=== PATIENT | female | born 1995 | race African-American/Black ===

== ENCOUNTER 2016-05-27 19:03 | Emergency (ER) | payer OTHER ==
[2016-05-27] MEDS ORDERED: metroNIDAZOLE (FLAGYL) 250 MG TAB As Ordered ONE (21:39)
--- NOTE | 2016-05-27 21:48 | EDDOCDS ---
Nurse's Notes [facility] Name: Thomas Ledbetter Age: 20 yrs Sex: Female : 1995 Arrival Date: 05/27/2016 Time: 19:03 Bed I4 / M4 [facility] Diagnosis: Vaginitis, vulvitis and vulvovaginitis in diseases classified elsewhere-bacterial vaginosis;Other ovarian cysts-right;Pseudofolliculitis barbae-mons pubis Presentation: 05/27 19:22 Presenting complaint: Patient states: Has had ongoing yeast infection for 2.5 months jo3 and developed a rash two days ago. Has had several treatments for yeast infection that have been unsuccessful. Adult Sepsis Screening: The patient does not have new or worsening altered mentation. Patient's respiratory rate is less than 22. Systolic blood pressure is less than or equal to 100 (1 point). Patient has a qSOFA score of 1- Negative Sepsis Screen. Suicide/Homicide risk assessment- the patient denies having any suicidal and/or homicidal ideations and does not present with any other emotional, behavioral or mental health complaints. 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 Transition of care: patient was not received from another setting of care. 19:22 Acuity: JOE Level 3 jo3 19:22 Method Of Arrival: Walkin/Carried/Asstd jo3 Triage Assessment: 19:24 General: Appears in no apparent distress, comfortable, Behavior is appropriate for age, jo3 cooperative, pleasant. HIV screening NA for this visit Offered previously. Neurological: Level of Consciousness is awake, alert, Oriented to person, place, time. Respiratory: Airway is patent Respiratory effort is even, unlabored. 21:47 Pain: Denies pain. 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 none - PMHx: none; - PSHx: none; - Social history: Smoking status: Patient states was never smoker of tobacco. No barriers to communication noted, The patient speaks fluent [place], Speaks appropriately for age. - Family history: Not pertinent. - : The pt / caregiver states he / she is not on anticoagulants. Home medication list is obtained from the patient. - Exposure Risk Screening:: None identified. Screenin:42 Screening information is obtained from the patient. Fall risk: No risks identified. js15 Assistance ADL's: requires no assistance with activities of daily living. Abuse/DV Screen: The patient / caregiver reports he/she is: not in a situation that causes fear, pain or injury. Nutritional screening: No deficits noted. Advance Directives: There is no active DNR order. home support is adequate. Assessment: 21:42 General: Appears in no apparent distress, Behavior is appropriate for age, cooperative. js15 Neurological: Level of Consciousness is awake, alert, obeys commands. Respiratory: Airway is patent Respiratory effort is even, unlabored, Respiratory pattern is regular, symmetrical. Derm: Skin is normal. Vital Signs: 19:04 BP 98 / 57; Pulse 75; Resp 18 S; Temp 97.4(O); Pulse Ox 100% on R/A; Weight 55.79 kg gr2 (R); Height 5 ft. 7 in. (170.18 cm) (R); Pain 4/10; 21:44 BP 98 / 52; Pulse 64; Resp 18; Temp 97.6; Pulse Ox 100% ; Pain 0/10; ajs 19:04 Body Mass Index 19.26 (55.79 kg, 170.18 cm) gr2 Vitals: 19:04 Log In Time: May 27, 2016 at 19:04. gr2 ED Course: 19:04 Patient visited by Paloma Clement. gr2 19:04 [facility] [place] is Private Physician. gr2 19:04 Patient moved to Waiting gr2 19:06 Patient visited by Paloma Clement. gr2 19:06 Patient moved to Pre RCE gr2 19:24 Triage Initiated jo3 19:26 Patient visited by Gunjan Quesada RN. jo3 19:49 Patient moved to Triage 3 jf3 19:52 [facility] ar2 19:52 Dima Ontiveros DO is Attending Physician. ar2 19:52 Patient visited by Sonny Donis PA-C. ar2 20:03 Patient moved to I4 / M4 ajs 20:23 Patient moved to Ultrasound en 20:49 Patient moved to I4 / M4 en 21:10 [facility] Payment Agreement was scanned into [employer] and attached to record. gjb 21:15 Patient name changed from Amonee\S\\S\Ledbetter\S\ to Amonee\S\ \S\Ledbetter. EDMS 21:35 Abby Gonzales MD is Referral Physician. ar2 21:35 [facility]. ar2 21:42 The patient / caregiver is instructed regarding the plan of care and ED course. js15 21:42 No IV's were initiated during this patient's visit. No procedures done that require js15 assistance. Administered Medications: 21:42 Drug: metroNIDAZOLE 500 mg [metronidazole 250 mg tablet (2 tabs)] Route: PO; js15 Order Results: Lab Order: Wet Prep; SPEC'M 05/27/16 20:17 Test: WET PREP; Value: WET PREP RESULT; Status: F Test: WET PREP; Value: FEW WBC; Status: F Test: WET PREP; Value: FEW CLUE CELLS PRESENT; Status: F Test: WET PREP; Value: MODERATE EPITHELIAL CELLS PRESENT; Status: F Test: WET PREP; Value: FEW SHORT RODS PRESENT; Status: F Test: WET PREP; Value: MANY LONG RODS PRESENT; Status: F Lab Order: UA; SPEC'M 05/27/16 20:54 Test: APPEARANCE, URINE; Value: CLEAR; Range: CLEAR; Status: F Test: COLOR, URINE; Value: STRAW; Range: YELLOW; Status: F Test: PH,URINE; Value: 7.0; Range: 5.0-9.0; Units: UNITS; Status: F Test: SPECIFIC GRAVITY URINE AUTO; Value: 1.015; Range: 1.002-1.035; Status: F Test: PROTEIN, URINE AUTO; Value: NEGATIVE; Range: NEGATIVE; Units: mg/dL; Status: F Test: GLUCOSE, URINE (UA) AUTO; Value: NEGATIVE; Range: NEGATIVE; Units: mg/dL; Status: F Test: KETONE, URINE AUTO; Value: NEGATIVE; Range: NEGATIVE; Units: mg/dL; Status: F Test: UROBILINOGEN, URINE AUTO; Value: 0.2; Range: 0.0-2.0; Units: mg/dL; Status: F Test: BILIRUBIN, URINE AUTO; Value: NEGATIVE; Range: NEGATIVE; Status: F Test: NITRITE, URINE AUTO; Value: NEGATIVE; Range: NEGATIVE; Status: F Test: LEUKOCYTE ESTERASE, URINE AUTO; Value: NEGATIVE; Range: NEGATIVE; Status: F Test: BLOOD, URINE BLOOD; Value: NEGATIVE; Range: NEGATIVE; Status: F Test: WBC, URINE AUTO; Value: 0; Range: 0-3; Units: /HPF; Status: F Test: RBC, URINE AUTO; Value: 2; Range: 0-3; Units: /HPF; Status: F Test: BACTERIA, URINE AUTO; Value: NEGATIVE; Range: NEGATIVE; Status: F Test: SQUAMOUS EPITHELIAL CELL UR AU; Value: 0; Range: 0-6; Units: /HPF; Status: F Test: MUCUS, URINE; Value: SMALL; Range: NEGATIVE; Status: F Test: HYALINE CAST, URINE AUTO; Value: 0; Range: 0-1; Units: /LPF; Status: F Outcome: 21:37 Discharge ordered by Provider. ar2 21:46 Discharge Assessment: Patient awake, alert and oriented x 3. No cognitive and/or js15 functional deficits noted. Patient verbalized understanding of disposition instructions. patient administered narcotics - no. The following High Risk Discharge criteria are identified: None. Discharged to home ambulatory. Condition: unchanged. Discharge instructions given to patient, Instructed on discharge instructions, follow up and referral plans. medication usage, Demonstrated understanding of instructions, medications, Pt was receptive of discharge instructions/ teaching. Prescriptions given X 2. Property sent home with patient. 21:47 Ultrasound Study completed. js15 21:47 Patient left the ED. js15 Signatures: Dispatcher [employer] EDNH Gunjan Quesada RN RN Sonny Corley, PA-C PA-C ar2 Sugey Lopez Gainslee gr2 Griselda Collado RN RN js15 Dolores Walker JustinRN RN ceasar3 Sharon Rodriguez MTDD
--- NOTE | 2016-05-27 21:48 | EDDOCDS ---
Physician Documentation [facility] Name: Thomas Ledbetter Age: 20 yrs Sex: Female : 1995 Arrival Date: 05/27/2016 Time: 19:03 Bed I4 / M4 Private MD: [facility] [place] Disposition: 05/27/16 21:37 Discharged to Home/Self Care. Impression: Vaginitis, vulvitis and vulvovaginitis in diseases classified elsewhere - bacterial vaginosis, Other ovarian cysts - right, Pseudofolliculitis barbae - mons pubis. - Condition is Stable. - Discharge Instructions: Folliculitis, Ovarian Cyst, Bacterial Vaginosis, [id number]. - Prescriptions for Flagyl 500 mg Oral Tablet - take 1 tablet by ORAL route every 12 hours for 7 days; 13 tablet. Ibuprofen 600 mg Oral Tablet - take 1 tablet by ORAL route every 6 hours As needed take with food; 30 tablet. - Medication Reconciliation, Local Pharmacy Hours form. - Follow up: Abby Gonzales MD; When: Call to arrange an appointment; Reason: Recheck today's complaints, Continuance of care. Follow up: [facility]; When: As needed; Reason: Continuance of care. - Problem is new. - Symptoms are unchanged. Historical: - Allergies: No known drug Allergies; - Home Meds: 1. none - PMHx: none; - PSHx: none; - Social history: Smoking status: Patient states was never smoker of tobacco. No barriers to communication noted, The patient speaks fluent Azeri, Speaks appropriately for age. - Family history: Not pertinent. - : The pt / caregiver states he / she is not on anticoagulants. Home medication list is obtained from the patient. - Exposure Risk Screening:: None identified. 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 7 in. (170.18 cm) (R); Pain 4/10; 21:44 BP 98 / 52; Pulse 64; Resp 18; Temp 97.6; Pulse Ox 100% ; Pain 0/10; ajs 19:04 Body Mass Index 19.26 (55.79 kg, 170.18 cm) gr2 MDM: 20:03 Undress patient appropriately for examination ordered. ar2 20:03 Set up pelvic ordered. ar2 20:04 GC & Chlamydia Amplification Ordered. EDMS 20:04 UA Ordered. EDMS 20:04 Wet Prep Ordered. EDMS 20:04 Urine Culture Ordered. EDMS 20:19 -US Pelvic Non-Ob Complete Ordered. EDMS 20:19 DUPLEX SCAN LIMITED (DOPPLER)+US Ordered. EDMS 20:45 Transvaginal NON- US Ordered. EDMS 21:00 Wet Prep Reviewed. ar2 21:09 Financial registration complete. gjb 21:10 [facility] Payment Agreement was scanned into [employer] and attached to record. gjb 21:34 UA Reviewed. ar2 21:34 metroNIDAZOLE 500 mg PO once ordered. ar2 Administered Medications: 21:42 Drug: metroNIDAZOLE 500 mg [metronidazole 250 mg tablet (2 tabs)] Route: PO; js15 Signatures: Dispatcher [employer] Gunjan Gomez,RN RN jo3 Sonny Donis, PADoron PADoron ar2 Griselda ColladoRN RN js15 Sharon Rodriguez The chart was reviewed and I authenticate all verbal orders and agree with the evaluation and treatment provided.Attachments: 21:10 [facility] Payment Agreement gjb MTDD
--- NOTE | 2016-05-27 22:00 | REPUSA ---
HISTORY: Adnexal pain with discharge COMPARISON : None FINDINGS: Ultrasound examination of the pelvis was performed, transabdominally and endovaginally. Ultrasound wa s performed using grayscale, color doppler flow and spectral waveform analysis. The anteverted uterus measures 7.4 x 3.8 x 4.9 cm without masses. The endometrial stripe measured 4 mm without mass or increased vascularity. The right ovary measured 4.2 x 2.4 x 3.7 cm The left ovary measured 4.1 x 1.8 x 3.6 cm. Both ovaries demonstrate with a 2.7 cm simple appearing right ovarian cyst which is probable dominant follicle. No free fluid. IMPRESSION: No evidence of ovarian torsion. Both ovaries demonstrate with a 2.7 cm simple appearing right ovarian cyst which is probable dominant follicle.
--- NOTE | 2016-05-29 22:48 | EDDOCDS ---
Physician Documentation [facility] Name: Thomas Ledbetter Age: 20 yrs Sex: Female : 1995 Arrival Date: 05/27/2016 Time: 19:03 Bed I4 / M4 Private MD: [facility] [place] Disposition: 05/27/16 21:37 Discharged to Home/Self Care. Impression: Vaginitis, vulvitis and vulvovaginitis in diseases classified elsewhere - bacterial vaginosis, Other ovarian cysts - right, Pseudofolliculitis barbae - mons pubis. - Condition is Stable. - Discharge Instructions: Folliculitis, Ovarian Cyst, Bacterial Vaginosis, [id number]. - Prescriptions for Flagyl 500 mg Oral Tablet - take 1 tablet by ORAL route every 12 hours for 7 days; 13 tablet. Ibuprofen 600 mg Oral Tablet - take 1 tablet by ORAL route every 6 hours As needed take with food; 30 tablet. - Medication Reconciliation, Local Pharmacy Hours form. - Follow up: Abby Gonzales MD; When: Call to arrange an appointment; Reason: Recheck today's complaints, Continuance of care. Follow up: [facility] [place]; When: As needed; Reason: Continuance of care. - Problem is new. - Symptoms are unchanged. Historical: - Allergies: No known drug Allergies; - Home Meds: 1. none - PMHx: none; - PSHx: none; - Social history: Smoking status: Patient states was never smoker of tobacco. No barriers to communication noted, The patient speaks fluent Swedish, Speaks appropriately for age. - Family history: Not pertinent. - : The pt / caregiver states he / she is not on anticoagulants. Home medication list is obtained from the patient. - Exposure Risk Screening:: None identified. 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 7 in. (170.18 cm) (R); Pain 4/10; 21:44 BP 98 / 52; Pulse 64; Resp 18; Temp 97.6; Pulse Ox 100% ; Pain 0/10; ajs 19:04 Body Mass Index 19.26 (55.79 kg, 170.18 cm) gr2 MDM: 20:03 Undress patient appropriately for examination ordered. ar2 20:03 Set up pelvic ordered. ar2 20:04 GC & Chlamydia Amplification Ordered. EDMS 20:04 UA Ordered. EDMS 20:04 Wet Prep Ordered. EDMS 20:04 Urine Culture Ordered. EDMS 20:19 -US Pelvic Non-Ob Complete Ordered. EDMS 20:19 DUPLEX SCAN LIMITED (DOPPLER)+US Ordered. EDMS 20:45 Transvaginal NON- US Ordered. EDMS 21:00 Wet Prep Reviewed. ar2 21:09 Financial registration complete. gjb 21: [facility] Payment Agreement was scanned into [employer] and attached to record. gjb 21:34 UA Reviewed. ar2 21:34 metroNIDAZOLE 500 mg PO once ordered. ar2 05/28 12:53 T-Sheet-- Draft Copy was scanned into [employer] and attached to record. gb Administered Medications: 05/27 21:42 Drug: metroNIDAZOLE 500 mg [metronidazole 250 mg tablet (2 tabs)] Route: PO; js15 Signatures: Dispatcher [employer] EDHI Sheryl Hurley, Reg Reg gb Gunjan Quesada,RN RN mario3 Sonny Donis PA-C PADoron ar2 Griselda ColladoRN RN js15 Sharon Rodriguez The chart was reviewed and I authenticate all verbal orders and agree with the evaluation and treatment provided.Attachments: :10 [facility] Payment Agreement [facility] 05/28 12:53 T-Sheet-- Draft Copy gb Chart Complete MTDD
--- NOTE | 2016-05-29 22:48 | EDDOCDS ---
Physician Documentation [facility] Name: Thomas Ledbetter Age: 20 yrs Sex: Female : 1995 Arrival Date: 05/27/2016 Time: 19:03 Bed I4 / M4 Private MD: [facility] [place] Disposition: 05/27/16 21:37 Discharged to Home/Self Care. Impression: Vaginitis, vulvitis and vulvovaginitis in diseases classified elsewhere - bacterial vaginosis, Other ovarian cysts - right, Pseudofolliculitis barbae - mons pubis. - Condition is Stable. - Discharge Instructions: Folliculitis, Ovarian Cyst, Bacterial Vaginosis, [id number]. - Prescriptions for Flagyl 500 mg Oral Tablet - take 1 tablet by ORAL route every 12 hours for 7 days; 13 tablet. Ibuprofen 600 mg Oral Tablet - take 1 tablet by ORAL route every 6 hours As needed take with food; 30 tablet. - Medication Reconciliation, Local Pharmacy Hours form. - Follow up: Abby Gonzales MD; When: Call to arrange an appointment; Reason: Recheck today's complaints, Continuance of care. Follow up: [facility] [place]; When: As needed; Reason: Continuance of care. - Problem is new. - Symptoms are unchanged. Historical: - Allergies: No known drug Allergies; - Home Meds: 1. none - PMHx: none; - PSHx: none; - Social history: Smoking status: Patient states was never smoker of tobacco. No barriers to communication noted, The patient speaks fluent Telugu, Speaks appropriately for age. - Family history: Not pertinent. - : The pt / caregiver states he / she is not on anticoagulants. Home medication list is obtained from the patient. - Exposure Risk Screening:: None identified. 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 7 in. (170.18 cm) (R); Pain 4/10; 21:44 BP 98 / 52; Pulse 64; Resp 18; Temp 97.6; Pulse Ox 100% ; Pain 0/10; ajs 19:04 Body Mass Index 19.26 (55.79 kg, 170.18 cm) gr2 MDM: 20:03 Undress patient appropriately for examination ordered. ar2 20:03 Set up pelvic ordered. ar2 20:04 GC & Chlamydia Amplification Ordered. EDMS 20:04 UA Ordered. EDMS 20:04 Wet Prep Ordered. EDMS 20:04 Urine Culture Ordered. EDMS 20:19 -US Pelvic Non-Ob Complete Ordered. EDMS 20:19 DUPLEX SCAN LIMITED (DOPPLER)+US Ordered. EDMS 20:45 Transvaginal NON- US Ordered. EDMS 21:00 Wet Prep Reviewed. ar2 21:09 Financial registration complete. gjb 21: [facility] Payment Agreement was scanned into [facility] and attached to record. gjb 21:34 UA Reviewed. ar2 21:34 metroNIDAZOLE 500 mg PO once ordered. ar2 05/28 12:53 T-Sheet-- Draft Copy was scanned into [facility] and attached to record. gb Administered Medications: 05/27 21:42 Drug: metroNIDAZOLE 500 mg [metronidazole 250 mg tablet (2 tabs)] Route: PO; js15 Signatures: Dispatcher [employer] EDPR Sheryl Hurley, Reg Reg gb Gunjan Quesada,RN RN mario3 Sonny Donis PA-C PADoron ar2 Griselda ColladoRN RN js15 Sharon Rodriguez The chart was reviewed and I authenticate all verbal orders and agree with the evaluation and treatment provided.Attachments: :10 [facility] Payment Agreement [facility] 05/28 12:53 T-Sheet-- Draft Copy gb Chart Complete MTDD
--- NOTE | 2016-05-29 22:48 | EDDOCDS ---
Nurse's Notes [facility] Name: Thomas Ledbetter Age: 20 yrs Sex: Female : 1995 Arrival Date: 05/27/2016 Time: 19:03 Bed I4 / M4 [facility] Diagnosis: Vaginitis, vulvitis and vulvovaginitis in diseases classified elsewhere-bacterial vaginosis;Other ovarian cysts-right;Pseudofolliculitis barbae-mons pubis Presentation: 05/27 19:22 Presenting complaint: Patient states: Has had ongoing yeast infection for 2.5 months jo3 and developed a rash two days ago. Has had several treatments for yeast infection that have been unsuccessful. Adult Sepsis Screening: The patient does not have new or worsening altered mentation. Patient's respiratory rate is less than 22. Systolic blood pressure is less than or equal to 100 (1 point). Patient has a qSOFA score of 1- Negative Sepsis Screen. Suicide/Homicide risk assessment- the patient denies having any suicidal and/or homicidal ideations and does not present with any other emotional, behavioral or mental health complaints. 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 Transition of care: patient was not received from another setting of care. 19:22 Acuity: JOE Level 3 jo3 19:22 Method Of Arrival: Walkin/Carried/Asstd jo3 Triage Assessment: 19:24 General: Appears in no apparent distress, comfortable, Behavior is appropriate for age, jo3 cooperative, pleasant. HIV screening NA for this visit Offered previously. Neurological: Level of Consciousness is awake, alert, Oriented to person, place, time. Respiratory: Airway is patent Respiratory effort is even, unlabored. 21:47 Pain: Denies pain. 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 none - PMHx: none; - PSHx: none; - Social history: Smoking status: Patient states was never smoker of tobacco. No barriers to communication noted, The patient speaks fluent [place], Speaks appropriately for age. - Family history: Not pertinent. - : The pt / caregiver states he / she is not on anticoagulants. Home medication list is obtained from the patient. - Exposure Risk Screening:: None identified. Screenin:42 Screening information is obtained from the patient. Fall risk: No risks identified. js15 Assistance ADL's: requires no assistance with activities of daily living. Abuse/DV Screen: The patient / caregiver reports he/she is: not in a situation that causes fear, pain or injury. Nutritional screening: No deficits noted. Advance Directives: There is no active DNR order. home support is adequate. Assessment: 21:42 General: Appears in no apparent distress, Behavior is appropriate for age, cooperative. js15 Neurological: Level of Consciousness is awake, alert, obeys commands. Respiratory: Airway is patent Respiratory effort is even, unlabored, Respiratory pattern is regular, symmetrical. Derm: Skin is normal. Vital Signs: 19:04 BP 98 / 57; Pulse 75; Resp 18 S; Temp 97.4(O); Pulse Ox 100% on R/A; Weight 55.79 kg gr2 (R); Height 5 ft. 7 in. (170.18 cm) (R); Pain 4/10; 21:44 BP 98 / 52; Pulse 64; Resp 18; Temp 97.6; Pulse Ox 100% ; Pain 0/10; ajs 19:04 Body Mass Index 19.26 (55.79 kg, 170.18 cm) gr2 Vitals: 19:04 Log In Time: May 27, 2016 at 19:04. gr2 ED Course: 19:04 Patient visited by Paloma Clement. gr2 19:04 [facility], [place] is Private Physician. gr2 19:04 Patient moved to Waiting gr2 19:06 Patient visited by Paloma Clement. gr2 19:06 Patient moved to Pre RCE gr2 19:24 Triage Initiated jo3 19:26 Patient visited by Gunjan Quesada RN. jo3 19:49 Patient moved to Triage 3 jf3 19:52 [facility] ar2 19:52 Dima Ontiveros DO is Attending Physician. ar2 19:52 Patient visited by Sonny Donis PA-C. ar2 20:03 Patient moved to I4 / M4 ajs 20:23 Patient moved to Ultrasound en 20:49 Patient moved to I4 / M4 en 21:10 [facility] Agreement was scanned into [employer] and attached to record. gjb 21:15 Patient name changed from Amonee\S\\S\Ledbetter\S\ to Amonee\S\ \S\Ledbetter. EDMS 21:35 Abby Gonzales MD is Referral Physician. ar2 21:35 [facility]. ar2 21:42 The patient / caregiver is instructed regarding the plan of care and ED course. js15 21:42 No IV's were initiated during this patient's visit. No procedures done that require js15 assistance. 22:38 -US Pelvic Non-Ob Complete Returned. EDMS 05/28 12:53 T-Sheet-- Draft Copy was scanned into [employer] and attached to record. gb Administered Medications: 05/27 21:42 Drug: metroNIDAZOLE 500 mg [metronidazole 250 mg tablet (2 tabs)] Route: PO; js15 Order Results: Lab Order: Wet Prep; SPEC'M 05/27/16 20:17 Test: WET PREP; Value: WET PREP RESULT; Status: F Test: WET PREP; Value: FEW WBC; Status: F Test: WET PREP; Value: FEW CLUE CELLS PRESENT; Status: F Test: WET PREP; Value: MODERATE EPITHELIAL CELLS PRESENT; Status: F Test: WET PREP; Value: FEW SHORT RODS PRESENT; Status: F Test: WET PREP; Value: MANY LONG RODS PRESENT; Status: F Lab Order: GC & Chlamydia Amplification; SPEC'M 05/27/16 20:17 Test: CHLAMYDIA DNA AMPLIFICATION; Value: NEGATIVE; Range: NEGATIVE; Status: F Test: GC DNA AMPLIFICATION; Value: NEGATIVE; Range: NEGATIVE; Status: F Lab Order: UA; SPEC'M 05/27/16 20:54 Test: APPEARANCE, URINE; Value: CLEAR; Range: CLEAR; Status: F Test: COLOR, URINE; Value: STRAW; Range: YELLOW; Status: F Test: PH,URINE; Value: 7.0; Range: 5.0-9.0; Units: UNITS; Status: F Test: SPECIFIC GRAVITY URINE AUTO; Value: 1.015; Range: 1.002-1.035; Status: F Test: PROTEIN, URINE AUTO; Value: NEGATIVE; Range: NEGATIVE; Units: mg/dL; Status: F Test: GLUCOSE, URINE (UA) AUTO; Value: NEGATIVE; Range: NEGATIVE; Units: mg/dL; Status: F Test: KETONE, URINE AUTO; Value: NEGATIVE; Range: NEGATIVE; Units: mg/dL; Status: F Test: UROBILINOGEN, URINE AUTO; Value: 0.2; Range: 0.0-2.0; Units: mg/dL; Status: F Test: BILIRUBIN, URINE AUTO; Value: NEGATIVE; Range: NEGATIVE; Status: F Test: NITRITE, URINE AUTO; Value: NEGATIVE; Range: NEGATIVE; Status: F Test: LEUKOCYTE ESTERASE, URINE AUTO; Value: NEGATIVE; Range: NEGATIVE; Status: F Test: BLOOD, URINE BLOOD; Value: NEGATIVE; Range: NEGATIVE; Status: F Test: WBC, URINE AUTO; Value: 0; Range: 0-3; Units: /HPF; Status: F Test: RBC, URINE AUTO; Value: 2; Range: 0-3; Units: /HPF; Status: F Test: BACTERIA, URINE AUTO; Value: NEGATIVE; Range: NEGATIVE; Status: F Test: SQUAMOUS EPITHELIAL CELL UR AU; Value: 0; Range: 0-6; Units: /HPF; Status: F Test: MUCUS, URINE; Value: SMALL; Range: NEGATIVE; Status: F Test: HYALINE CAST, URINE AUTO; Value: 0; Range: 0-1; Units: /LPF; Status: F Lab Order: Urine Culture; SPEC'M 05/27/16 20:54 Test: URINE CULTURE; Value: <EXTERNAL COMMENT eCWMed> FULL REPORT IN LAB NOTES (eCW and Medent).; Status: F Test: URINE CULTURE; Value: URINE CULTURE RESULT NO GROWTH; Status: F Radiology Order: -US Pelvic Non-Ob Complete Test: -US Pelvic Non-Ob Complete REASON FOR EXAMINATION: adenexal pain, discharge; ; HISTORY: Adnexal pain with discharge; COMPARISON : None; FINDINGS:; Ultrasound examination of the pelvis was performed, transabdominally and endovaginally. Ultrasound wa; s performed using grayscale, color doppler flow and spectral waveform analysis.; The anteverted uterus measures 7.4 x 3.8 x 4.9 cm without masses.; The endometrial stripe measured 4 mm without mass or increased vascularity.; The right ovary measured 4.2 x 2.4 x 3.7 cm; The left ovary measured 4.1 x 1.8 x 3.6 cm.; Both ovaries demonstrate with a 2.7 cm simple appearing right ovarian cyst which is probable dominant; follicle.; No free fluid.; IMPRESSION:; No evidence of ovarian torsion. Both ovaries demonstrate with a 2.7 cm simple appearing right ovarian; cyst which is probable dominant follicle.; ; Outcome: 21:37 Discharge ordered by Provider. ar2 21:46 Discharge Assessment: Patient awake, alert and oriented x 3. No cognitive and/or js15 functional deficits noted. Patient verbalized understanding of disposition instructions. patient administered narcotics - no. The following High Risk Discharge criteria are identified: None. Discharged to home ambulatory. Condition: unchanged. Discharge instructions given to patient, Instructed on discharge instructions, follow up and referral plans. medication usage, Demonstrated understanding of instructions, medications, Pt was receptive of discharge instructions/ teaching. Prescriptions given X 2. Property sent home with patient. 21:47 Ultrasound Study completed. js15 21:47 Patient left the ED. js15 Signatures: Dispatcher [employer] EDMS Sheryl Hurley, Reg Reg Gunjan Chaves,RN RN jo3 Sonny Donis, PA-Jerry PA-Jerry ar2 Sugey Lopez Gainslee gr2 Griselda ColladoRN RN js15 Dolores Walker Justin,RN RN jf3 Sharon Rodriguez Chart Complete MTDD
== END 2016-05-27 21:47 | disposition home or self-care (01) ==
LOC: M ED 19:03
DX: N83.209 Unspecified ovarian cyst, unspecified side (principal); N76.0 Acute vaginitis; L73.1 Pseudofolliculitis barbae

== ENCOUNTER 2016-06-22 22:23 | Emergency (ER) | payer OTHER ==
[2016-06-22 23:23] LABS: BASO % 0.5 % (0.0-1.0); EOS # 0.1 K/mm3 (0.0-0.50); LARGE UNSTAINED CELL # 0.2 K/mm3 (0.0-0.4); LARGE UNSTAINED CELL % 2.3 % (0.0-4.0); LYMPH # 1.9 K/mm3 (1.5-6.5); LYMPH % 28.3 % (24.0-44.0); MEAN CORPUSCULAR HEMOGLOBIN 30.2 pg (27.0-33.0); MEAN CORPUSCULAR HGB CONC 33.5 g/dl (32.0-36.5); MEAN CORPUSCULAR VOLUME 90.4 fl (80.0-96.0); MONO # 0.3 K/mm3 (0.0-0.8); MONO % 4.2 % (0.0-5.0); NEUTROPHILS % 62.7 % (36.0-66.0); PLATELET COUNT, AUTOMATED 181 k/mm3 (150-450); RED CELL DISTRIBUTION WIDTH 12.9 % (11.5-14.5); WHITE BLOOD COUNT 6.3 K/mm3 (4.0-10.0)
[2016-06-22] MEDS ORDERED: KETOROLAC 30 MG/ML VIAL (J1885) As Ordered ONE (23:30)
[2016-06-22 23:49] LABS: ALBUMIN 3.8 GM/DL (3.2-5.2); ALBUMIN/GLOBULIN RATIO 1.03 (1.00-1.93); ALKALINE PHOSPHATASE 81 U/L (45-117); ALT/SGPT 27 U/L (12-78); ANION GAP 9 MEQ/L (8-16); AST/SGOT 24 U/L (15-37); BILIRUBIN,DIRECT 0.1 MG/DL (0.0-0.2); BILIRUBIN,TOTAL 0.4 MG/DL (0.2-1.0); BLOOD UREA NITROGEN 10 MG/DL (7-18); CALCIUM LEVEL 9.1 MG/DL (8.5-10.1); CARBON DIOXIDE LEVEL 26 MEQ/L (21-32); CHLORIDE LEVEL 107 MEQ/L (98-107); CREATININE FOR GFR 0.84 MG/DL (0.55-1.02); GLUCOSE, FASTING 108 MG/DL (70-105); SODIUM LEVEL 142 MEQ/L (136-145); TOTAL PROTEIN 7.5 GM/DL (6.4-8.2)
--- NOTE | 2016-06-23 00:20 | REPUSA ---
Clinical history: suprapubic pain. Findings: The urinary bladder appears unremarkable, measuring 4.5 x 3.2 x 2.0 cm. No urinary bladder masses are seen. The right kidney measures 10.0 x 4.6 x 4.1 cm. The left kidney measures 10.3 x 4.7 x 6.1 cm. The kidneys demonstrate normal echotexture and echogenicity. There is no evidence of hydrone phrosis or nephrolithiasis. No renal masses are seen. No free fluid is appreciated. Impression: Unremarkable ultrasound examination of the kidneys.
[2016-06-23 00:54] LABS: CONTROL LINE UCG INT CTR LINE PRESENT
[2016-06-23] MEDS ORDERED: CIPROFLOXACIN 500 MG TAB As Ordered ONE (00:54)
[2016-06-23] MEDS ORDERED: cefTRIAXone SOD 1 GM VIAL (J0696) As Ordered ONE (00:54)
--- NOTE | 2016-06-23 01:40 | EDDOCDS ---
Physician Documentation [facility] Name: Thomas Ledbetter Age: 20 yrs Sex: Female : 1995 Arrival Date: 06/22/2016 Time: 22:23 Bed I7 / 29 Private MD: LORETO Boyd Disposition: 06/23/16 00:59 Discharged to Home/Self Care. Impression: Urinary tract infection, site not specified. - Condition is Stable. - Discharge Instructions: Abdominal Pain, Adult, Urinary Tract Infection. - Prescriptions for Cipro 500 mg Oral Tablet - take 1 tablet by ORAL route every 12 hours; 14 tablet. Pyridium 200 mg Oral Tablet - take 1 tablet by ORAL route every 8 hours for 3 days; 9 tablet. - Work Release Form - 2 day, Medication Reconciliation, Local Pharmacy Hours form. - Follow up: LORETO Boyd; When: Call to arrange an appointment; Reason: Recheck today's complaints, Continuance of care. - Problem is new. - Symptoms are unchanged. Historical: - Allergies: No known drug Allergies; - Home Meds: 1. none - PMHx: none; - PSHx: none; - Social history: Smoking status: Patient states was never smoker of tobacco. No barriers to communication noted, The patient speaks fluent Citizen [place], Speaks appropriately for age, Preferred Language: Citizen [place]. - Family history: Not pertinent. - : The pt / caregiver states he / she is not on anticoagulants. Home medication list is obtained from the patient. - Exposure Risk Screening:: None identified. 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 7 in. (170.18 cm) (R); Pain 8/10; 06/23 01:12 BP 102 / 51; Pulse 73; Resp 18; Temp 97.4(O); Pulse Ox 99% on R/A; Pain 0/10; kb5 06/22 22:24 Body Mass Index 19.58 (56.70 kg, 170.18 cm) lr2 MDM: 06/22 22:32 Bladder Scan please ordered. lf1 23:03 IV Saline Lock ordered. mo1 23:03 Undress patient appropriately for examination ordered. mo1 23:03 ketorolac 30 mg IVP once ordered. mo1 23:04 NOTHING BY MOUTH+DIET ordered. EDMS 23:04 CBC with Diff Ordered. EDMS 23:04 BMP Ordered. EDMS 23:04 Liver Profile Ordered. EDMS 23:04 Urinalysis Ordered. EDMS 23:05 Urine Culture Ordered. EDMS 23:05 US Renal Ordered. EDMS 23:45 Financial registration complete. zo 23:46 [facility] [place] Payment Agreement was scanned into [employer] and attached to record. zo 23:52 Urinalysis Reviewed. mo1 23:53 BMP Reviewed. mo1 23:57 CBC with Diff Reviewed. mo1 23:57 Liver Profile Reviewed. mo1 06/23 00:38 cefTRIAXone 1 grams IVPB once over 30 mins; dilute in 50mL of NS or D5W ordered. mo1 00:38 Ciprofloxacin 500 mg PO once ordered. mo1 00:39 GC & Chlamydia Amplification Ordered. EDMS 00:39 Wet Prep Ordered. EDMS 00:41 US Renal Reviewed. mo1 00:44 Urine Test-In Lab Ordered. EDMS 00:56 Urine Test-In Lab Reviewed. mo1 00:57 Wet Prep Reviewed. mo1 Administered Medications: 06/22 23:35 Drug: ketorolac 30 mg [ketorolac 30 mg/mL (1 mL) injection solution (1 mL)] Route: IVP; ld5 Site: right antecubital; 06/23 00:05 Follow up: Response: Pain is resolved js15 01:07 Drug: cefTRIAXone 1 grams [ceftriaxone 1 gram solution for injection] Route: IVPB; js15 Infused Over: 30 mins; Site: right antecubital; 01:39 Follow up: IV Status: Completed infusion js15 01:07 Drug: Ciprofloxacin 500 mg [ciprofloxacin 500 mg tablet (1 tabs)] Route: PO; js15 Signatures: Dispatcher [employer] EDMS Carlos Royal Lisa,RN RN lf1 Ivan Mercado PA PA mo1 Griselda Collado RN RN js15 Patsy Finnegan RN ld5 The chart was reviewed and I authenticate all verbal orders and agree with the evaluation and treatment provided.Corrections: (The following items were deleted from the chart) 06/22 23:22 23:03 Lucy lazo mo1 js15 Attachments: 23:46 [facility] [place] Payment Agreement zo MTDD
--- NOTE | 2016-06-23 01:40 | EDDOCDS ---
Nurse's Notes [facility] Name: Thomas Ledbetter Age: 20 yrs Sex: Female : 1995 Arrival Date: 06/22/2016 Time: 22:23 Bed I7 29 Private MD: LORETO Boyd Diagnosis: Urinary tract infection, site not specified Presentation: 06/22 22:27 Presenting complaint: Patient states: Pt states she has been unable to urinate since lf1 3am this morning. Currently having 8/10 suprapubic pain. Pt. states prior to onset of symptoms she was not having any other symptoms. Denies nausea and vomiting. Presents to triage area rocking back and forth, in obvious discomfort. Adult Sepsis Screening: The patient does not have new or worsening altered mentation. Patient's respiratory rate is less than 22. Systolic blood pressure is greater than 100. Patient has a qSOFA score of 0- Negative Sepsis Screen. Suicide/Homicide risk assessment- the patient denies having any suicidal and/or homicidal ideations and does not present with any other emotional, behavioral or mental health complaints. Status: Patient is not a building services supervisor or dependent. Transition of care: patient was not received from another setting of care. 22:27 Acuity: JOE Level 3 lf1 22:27 Method Of Arrival: Walkin/Carried/Asstd lf1 Triage Assessment: 22:29 General: Appears slender, uncomfortable, Behavior is cooperative. Pain: Location: lf1 pelvis Pain currently is 8 out of 10 on a pain scale. Neurological: Level of Consciousness is awake, alert. Respiratory: Respiratory effort is even, unlabored. : Reports inability to void since 0300. 06/23 00:10 HIV screening NA for this visit Offered previously. 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 none - PMHx: none; - PSHx: none; - Social history: Smoking status: Patient states was never smoker of tobacco. No barriers to communication noted, The patient speaks fluent Cymraes, Speaks appropriately for age, Preferred Language: Cymraes. - Family history: Not pertinent. - : The pt / caregiver states he / she is not on anticoagulants. Home medication list is obtained from the patient. - Exposure Risk Screening:: None identified. Screenin/28 00:09 Screening information is obtained from the patient. Fall risk: No risks identified. js15 Assistance ADL's: requires no assistance with activities of daily living. Abuse/DV Screen: The patient / caregiver reports he/she is: not in a situation that causes fear, pain or injury. Nutritional screening: No deficits noted. Advance Directives: There is no active DNR order. home support is adequate. Assessment: 06/22 22:30 Reassessment: bladder scan performed to find <25 ml urine; however, pt is tender to js15 palpation in suprapubic area and bladder is distended; findings reported to Karen SHI and orders given. General: Appears uncomfortable, Behavior is appropriate for age, cooperative. Pain: Location: suprapubic area. Neurological: Level of Consciousness is awake, alert, obeys commands, Oriented to person, place, time. Respiratory: Airway is patent Respiratory effort is even, unlabored, Respiratory pattern is regular, symmetrical. GI: Abdomen is distended, in suprapubic region. : Last void was June 22, 2016. at 03:00. Derm: Skin is pink, warm & dry. 23:30 GI:. js15 23:45 Reassessment: Pt in US for imaging study. 15 06/23 00:30 Reassessment: Patient appears in no apparent distress at this time. Pt sleeping upon js15 entry to room with family at bedside; respirations even and unlabored; arouses easily and denies pain; skin normal, warm, dry. 01:30 General: Appears in no apparent distress, comfortable, to be sleeping. Respiratory: js15 Airway is patent Respiratory effort is even, unlabored, Respiratory pattern is regular, symmetrical. Derm: Skin is normal. Vital Signs: 06/22 22:24 BP 109 / 57; Pulse 79; Resp 16; Temp 97.2(O); Pulse Ox 100% on R/A; Weight 56.7 kg (R); lr2 Height 5 ft. 7 in. (170.18 cm) (R); Pain 8/10; 06/23 01:12 BP 102 / 51; Pulse 73; Resp 18; Temp 97.4(O); Pulse Ox 99% on R/A; Pain 0/10; kb5 06/22 22:24 Body Mass Index 19.58 (56.70 kg, 170.18 cm) lr2 Vitals: 06/22 22:24 Log In Time: June 22, 2016 at 22:23. lr2 ED Course: 22:24 Patient visited by Patsy Brown. lr2 22:24 Patient moved to Waiting lr2 22:26 Other - Complete Info On Cds is Private Physician. lr2 22:26 Oliver [facility] [place] is Private Physician. lr2 22:26 Patient moved to Pre RCE lr2 22:29 Triage Initiated lf1 22:31 Patient moved to I7 lf1 22:35 attempted to insert 16 fr min catheter; able to insert approx. 1/3 of catheter tubing js15 and returned cloudy yellow urine, however pt began having extreme pain, crying out and tensing, and was unable to tolerate complete catheter insertion. Karen SHI was called to bedside to report findings and instructed this junior technical writer to draw urine from catheter tubing for sample and to remove catheter; catheter tip removed with small amount of blood at tip of tube. will continue to monitor. 22:43 Ivan Mercado PA is PHCP. mo1 22:43 Harry Negron DO is Attending Physician. mo1 22:55 Patient visited by Ivan Mercado PA. mo1 23:10 Inserted saline lock: 20 gauge in right antecubital area The patient tolerated the js15 procedure well. 23:41 Patient name changed from Amonee\S\\S\Ledbetter\S\ to Amonee\S\ \S\Ledbetter. EDMS 23:45 Patient moved to Ultrasound dmg 23:46 [facility] Payment Agreement was scanned into [employer] and attached to record. zo 06/23 00:01 Patient moved to I dmg 00:09 The patient / caregiver is instructed regarding the plan of care and ED course. js15 00:10 Patient visited by Griselda Collado RN. js15 00:39 US Renal Returned. EDMS 00:40 Assist provider with pelvic exam: Set up pelvic tray. Specimens sent to lab. Performed js15 by Ivan SHI Patient tolerated well. 00:43 Wet Prep Sent. js15 00:44 GC & Chlamydia Amplification Sent. js15 00:44 Urine Test-In Lab Sent. js15 00:59 Oliver [facility] [place] is Referral Physician. mo1 01:12 Patient visited by Robert Sweet PCA. kb5 01:38 Discontinued IV lock intact, bleeding controlled, pressure dressing applied, No js15 redness/swelling at site. Administered Medications: 06/22 23:35 Drug: ketorolac 30 mg [ketorolac 30 mg/mL (1 mL) injection solution (1 mL)] Route: IVP; ld5 Site: right antecubital; 06/23 00:05 Follow up: Response: Pain is resolved 01:07 Drug: cefTRIAXone 1 grams [ceftriaxone 1 gram solution for injection] Route: IVPB; js15 Infused Over: 30 mins; Site: right antecubital; 01:39 Follow up: IV Status: Completed infusion 01:07 Drug: Ciprofloxacin 500 mg [ciprofloxacin 500 mg tablet (1 tabs)] Route: PO; js15 Order Results: Lab Order: CBC with Diff; SPEC'M 06/22/16 23:11 Test: WHITE BLOOD COUNT; Value: 6.3; Range: 4.0-10.0; Units: K/mm3; Status: F Test: RED BLOOD COUNT; Value: 4.21; Range: 4.00-5.40; Units: M/mm3; Status: F Test: HEMOGLOBIN; Value: 12.7; Range: 12.0-16.0; Units: g/dl; Status: F Test: HEMATOCRIT; Value: 38.1; Range: 36.0-47.0; Units: %; Status: F Test: MEAN CORPUSCULAR VOLUME; Value: 90.4; Range: 80.0-96.0; Units: fl; Status: F Test: MEAN CORPUSCULAR HEMOGLOBIN; Value: 30.2; Range: 27.0-33.0; Units: pg; Status: F Test: MEAN CORPUSCULAR HGB CONC; Value: 33.5; Range: 32.0-36.5; Units: g/dl; Status: F Test: RED CELL DISTRIBUTION WIDTH; Value: 12.9; Range: 11.5-14.5; Units: %; Status: F Test: PLATELET COUNT, AUTOMATED; Value: 181; Range: 150-450; Units: k/mm3; Status: F Test: NEUTROPHILS %; Value: 62.7; Range: 36.0-66.0; Units: %; Status: F Test: LYMPH %; Value: 28.3; Range: 24.0-44.0; Units: %; Status: F Test: MONO %; Value: 4.2; Range: 0.0-5.0; Units: %; Status: F Test: EOS %; Value: 2.0; Range: 0.0-3.0; Units: %; Status: F Test: BASO %; Value: 0.5; Range: 0.0-1.0; Units: %; Status: F Test: LARGE UNSTAINED CELL %; Value: 2.3; Range: 0.0-4.0; Units: %; Status: F Test: NEUTROPHILS #; Value: 4.0; Range: 1.8-7.7; Units: K/mm3; Status: F Test: LYMPH #; Value: 1.9; Range: 1.5-6.5; Units: K/mm3; Status: F Test: MONO #; Value: 0.3; Range: 0.0-0.8; Units: K/mm3; Status: F Test: EOS #; Value: 0.1; Range: 0.0-0.50; Units: K/mm3; Status: F Test: BASO #; Value: 0.0; Range: 0.0-0.2; Units: K/mm3; Status: F Test: LARGE UNSTAINED CELL #; Value: 0.2; Range: 0.0-0.4; Units: K/mm3; Status: F Lab Order: [facility]; SPEC'M 06/22/16 23:11 Test: GLUCOSE, FASTING; Value: 108; Range: 70-105; Abnormal: Above high normal; Units: MG/DL; Status: F Test: BLOOD UREA NITROGEN; Value: 10; Range: 7-18; Units: MG/DL; Status: F Test: CREATININE FOR GFR; Value: 0.84; Range: 0.55-1.02; Units: MG/DL; Status: F Test: SODIUM LEVEL; Value: 142; Range: 136-145; Units: MEQ/L; Status: F Test: POTASSIUM SERUM; Value: 4.0; Range: 3.5-5.1; Units: MEQ/L; Status: F Test: CHLORIDE LEVEL; Value: 107; Range: 98-107; Units: MEQ/L; Status: F Test: CARBON DIOXIDE LEVEL; Value: 26; Range: 21-32; Units: MEQ/L; Status: F Test: ANION GAP; Value: 9; Range: 8-16; Units: MEQ/L; Status: F Test: CALCIUM LEVEL; Value: 9.1; Range: 8.5-10.1; Units: MG/DL; Status: F Lab Order: Liver Profile; SPEC'M 06/22/16 23:11 Test: AST/SGOT; Value: 24; Range: 15-37; Units: U/L; Status: F Test: ALT/SGPT; Value: 27; Range: 12-78; Units: U/L; Status: F Test: ALKALINE PHOSPHATASE; Value: 81; Range: 45-117; Units: U/L; Status: F Test: BILIRUBIN,TOTAL; Value: 0.4; Range: 0.2-1.0; Units: MG/DL; Status: F Test: BILIRUBIN,DIRECT; Value: 0.1; Range: 0.0-0.2; Units: MG/DL; Status: F Test: TOTAL PROTEIN; Value: 7.5; Range: 6.4-8.2; Units: GM/DL; Status: F Test: ALBUMIN; Value: 3.8; Range: 3.2-5.2; Units: GM/DL; Status: F Test: ALBUMIN/GLOBULIN RATIO; Value: 1.03; Range: 1.00-1.93; Status: F Lab Order: Urinalysis; SPEC'M 06/22/16 23:11 Test: APPEARANCE, URINE; Value: CLOUDY; Range: CLEAR; Abnormal: Above high normal; Status: F Test: COLOR, URINE; Value: YELLOW; Range: YELLOW; Status: F Test: PH,URINE; Value: 5.0; Range: 5.0-9.0; Units: UNITS; Status: F Test: SPECIFIC GRAVITY URINE AUTO; Value: 1.034; Range: 1.002-1.035; Status: F Test: PROTEIN, URINE AUTO; Value: 2+; Range: NEGATIVE; Abnormal: Above high normal; Units: mg/dL; Status: F Test: GLUCOSE, URINE (UA) AUTO; Value: NEGATIVE; Range: NEGATIVE; Units: mg/dL; Status: F Test: KETONE, URINE AUTO; Value: TRACE; Range: NEGATIVE; Abnormal: Above high normal; Units: mg/dL; Status: F Test: UROBILINOGEN, URINE AUTO; Value: 0.2; Range: 0.0-2.0; Units: mg/dL; Status: F Test: BILIRUBIN, URINE AUTO; Value: NEGATIVE; Range: NEGATIVE; Status: F Test: NITRITE, URINE AUTO; Value: NEGATIVE; Range: NEGATIVE; Status: F Test: LEUKOCYTE ESTERASE, URINE AUTO; Value: 2+; Range: NEGATIVE; Abnormal: Above high normal; Status: F Test: BLOOD, URINE BLOOD; Value: 3+; Range: NEGATIVE; Abnormal: Above high normal; Status: F Test: WBC, URINE AUTO; Value: TNTC; Range: 0-3; Abnormal: Above high normal; Units: /HPF; Status: F Test: RBC, URINE AUTO; Value: TNTC; Range: 0-3; Abnormal: Above high normal; Units: /HPF; Status: F Test: BACTERIA, URINE AUTO; Value: 1+; Range: NEGATIVE; Abnormal: Above high normal; Status: F Test: SQUAMOUS EPITHELIAL CELL UR AU; Value: 3; Range: 0-6; Units: /HPF; Status: F Test: MUCUS, URINE; Value: LARGE; Range: NEGATIVE; Status: F Test: HYALINE CAST, URINE AUTO; Value: 0; Range: 0-1; Units: /LPF; Status: F Test: AMORPHOUS SEDIMENT; Value: SMALL; Range: NEGATIVE; Abnormal: Above high normal; Status: F Lab Order: Wet Prep; SPEC'M 06/23/16 00:42 Test: WET PREP; Value: WET PREP RESULT; Status: F Test: WET PREP; Value: MANY RBC; Status: F Test: WET PREP; Value: MODERATE WBC; Status: F Test: WET PREP; Value: MODERATE EPITHELIAL CELLS PRESENT; Status: F Test: WET PREP; Value: MODERATE SHORT RODS PRESENT; Status: F Lab Order: Urine Test-In Lab; SPEC'M 06/22/16 23:11 Test: URINE PREG TEST; Value: NEGATIVE; Range: NEGATIVE; Status: F Radiology Order: US Renal Test: US Renal REASON FOR EXAMINATION: suprapubic pain; ; Clinical history: suprapubic pain.; Findings: The urinary bladder appears unremarkable, measuring 4.5 x 3.2 x 2.0 cm. No urinary bladder; masses are seen. The right kidney measures 10.0 x 4.6 x 4.1 cm. The left kidney measures 10.3 x 4.7 x; 6.1 cm. The kidneys demonstrate normal echotexture and echogenicity. There is no evidence of hydrone; phrosis or nephrolithiasis. No renal masses are seen. No free fluid is appreciated.; Impression: Unremarkable ultrasound examination of the kidneys.; ; Outcome: 00:09 Ultrasound Study completed. js15 00:59 Discharge ordered by Provider. mo1 01:38 Discharge Assessment: Patient awake, alert and oriented x 3. No cognitive and/or js15 functional deficits noted. Patient verbalized understanding of disposition instructions. patient administered narcotics - no. The following High Risk Discharge criteria are identified: None. Discharged to home ambulatory, with significant other. Condition: stable Condition: improved. Discharge instructions given to patient, Instructed on discharge instructions, follow up and referral plans. medication usage, Demonstrated understanding of instructions, medications, Pt was receptive of discharge instructions/ teaching. Prescriptions given X 2. Property sent home with patient. 01:40 Patient left the ED. js15 Signatures: Dispatcher [employer] EDMS Lydia Gatica dmCarlos Bazzi Kristopher, LEAN LEADER LEAN LEADER kb5 Carina AriasRN RN lf1 Patsy Finnegan,RN RN ld5 Ivan Mercado PA PA mo1 Griselda Collado,CHAITANYA RN js15 Patsy Brown lr2 Corrections: (The following items were deleted from the chart) 00:07 06/22 23:35 attempted to insert 16 fr min catheter; able to insert approx. 1/3 of js15 catheter tubing and returned cloudy yellow urine, however pt began having extreme pain, crying out and tensing, and was unable to tolerate complete catheter insertion. Karen SHI was called to bedside to report findings and instructed this junior technical writer to draw urine from catheter tubing for sample and to remove catheter; catheter tip removed with small amount of blood at tip of tube. will continue to monitor 15 06/23 00:06/22 23:30 General: Appears uncomfortable, Behavior is appropriate for age, js15 cooperative, [facility] 06/23 00:06/22 23:30 Pain: Location: suprapubic area 15 [facility] 06/23 00:06/22 23:30 Neurological: Level of Consciousness is awake, alert, obeys commands, js15 Oriented to person, place, time, [facility] 06/23 00:06/22 23:30 Respiratory: Airway is patent Respiratory effort is even, unlabored, js15 Respiratory pattern is regular, symmetrical, [facility] 06/23 00:06/22 23:30 : Last void was June 22, 2016. at 03:00. [place] [id number] 06/23 00:06/22 23:30 GI: Abdomen is distended, in suprapubic region [place] [id number] 06/23 00:06/22 23:30 Derm: Skin is pink, warm & dry. [place] [id number] 06/23 00:06/22 23:30 Reassessment: bladder scan performed to find <25 ml urine; however, pt is js15 tender to palpation in suprapubic area and bladder is distended; findings reported to Karen SHI and orders given. [facility] MTDD
--- NOTE | 2016-06-25 02:41 | EDDOCDS ---
Physician Documentation [facility] Name: Thomas Ledbetter Age: 20 yrs Sex: Female : 1995 Arrival Date: 06/22/2016 Time: 22:23 Bed I7 / 29 Private MD: LORETO Boyd Disposition: 06/23/16 00:59 Discharged to Home/Self Care. Impression: Urinary tract infection, site not specified. - Condition is Stable. - Discharge Instructions: Abdominal Pain, Adult, Urinary Tract Infection. - Prescriptions for Cipro 500 mg Oral Tablet - take 1 tablet by ORAL route every 12 hours; 14 tablet. Pyridium 200 mg Oral Tablet - take 1 tablet by ORAL route every 8 hours for 3 days; 9 tablet. - Work Release Form - 2 day, Medication Reconciliation, Local Pharmacy Hours form. - Follow up: LORETO Boyd; When: Call to arrange an appointment; Reason: Recheck today's complaints, Continuance of care. - Problem is new. - Symptoms are unchanged. Historical: - Allergies: No known drug Allergies; - Home Meds: 1. none - PMHx: none; - PSHx: none; - Social history: Smoking status: Patient states was never smoker of tobacco. No barriers to communication noted, The patient speaks fluent Fijian, Speaks appropriately for age, Preferred Language: Fijian. - Family history: Not pertinent. - : The pt / caregiver states he / she is not on anticoagulants. Home medication list is obtained from the patient. - Exposure Risk Screening:: None identified. 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 7 in. (170.18 cm) (R); Pain 8/10; 06/23 01:12 BP 102 / 51; Pulse 73; Resp 18; Temp 97.4(O); Pulse Ox 99% on R/A; Pain 0/10; kb5 06/22 22:24 Body Mass Index 19.58 (56.70 kg, 170.18 cm) lr2 MDM: 06/22 22:32 Bladder Scan please ordered. lf1 23:03 IV Saline Lock ordered. mo1 23:03 Undress patient appropriately for examination ordered. mo1 23:03 ketorolac 30 mg IVP once ordered. mo1 23:04 NOTHING BY MOUTH+DIET ordered. EDMS 23:04 CBC with Diff Ordered. EDMS 23:04 BMP Ordered. EDMS 23:04 Liver Profile Ordered. EDMS 23:04 Urinalysis Ordered. EDMS 23:05 Urine Culture Ordered. EDMS 23:05 US Renal Ordered. EDMS 23:45 Financial registration complete. zo 23:46 [facility] Payment Agreement was scanned into [employer] and attached to record. zo 23:52 Urinalysis Reviewed. mo1 23:53 BMP Reviewed. mo1 23:57 CBC with Diff Reviewed. mo1 23:57 Liver Profile Reviewed. mo1 06/23 00:38 cefTRIAXone 1 grams IVPB once over 30 mins; dilute in 50mL of NS or D5W ordered. mo1 00:38 Ciprofloxacin 500 mg PO once ordered. mo1 00:39 GC & Chlamydia Amplification Ordered. EDMS 00:39 Wet Prep Ordered. EDMS 00:41 US Renal Reviewed. mo1 00:44 Urine Test-In Lab Ordered. EDMS 00:56 Urine Test-In Lab Reviewed. mo1 00:57 Wet Prep Reviewed. mo1 Administered Medications: 06/22 23:35 Drug: ketorolac 30 mg [ketorolac 30 mg/mL (1 mL) injection solution (1 mL)] Route: IVP; ld5 Site: right antecubital; 06/23 00:05 Follow up: Response: Pain is resolved js15 01:07 Drug: cefTRIAXone 1 grams [ceftriaxone 1 gram solution for injection] Route: IVPB; js15 Infused Over: 30 mins; Site: right antecubital; 01:39 Follow up: IV Status: Completed infusion js15 01:07 Drug: Ciprofloxacin 500 mg [ciprofloxacin 500 mg tablet (1 tabs)] Route: PO; js15 Signatures: Dispatcher [employer] EDMS Carlos Royal Lisa,RN RN lf1 Ivan Mercado PA PA mo1 Griselda Collado RN RN js15 Patsy Finnegan RN ld5 The chart was reviewed and I authenticate all verbal orders and agree with the evaluation and treatment provided.Corrections: (The following items were deleted from the chart) 06/22 23:22 23:03 Lucy lazo mo1 js15 Attachments: 23:46 [facility] Payment Agreement zo Chart Complete MTDD
--- NOTE | 2016-06-25 02:41 | EDDOCDS ---
Physician Documentation [facility] Name: Thomas Ledbetter Age: 20 yrs Sex: Female : 1995 Arrival Date: 06/22/2016 Time: 22:23 Bed I7 / 29 Private MD: LORETO Boyd Disposition: 06/23/16 00:59 Discharged to Home/Self Care. Impression: Urinary tract infection, site not specified. - Condition is Stable. - Discharge Instructions: Abdominal Pain, Adult, Urinary Tract Infection. - Prescriptions for Cipro 500 mg Oral Tablet - take 1 tablet by ORAL route every 12 hours; 14 tablet. Pyridium 200 mg Oral Tablet - take 1 tablet by ORAL route every 8 hours for 3 days; 9 tablet. - Work Release Form - 2 day, Medication Reconciliation, Local Pharmacy Hours form. - Follow up: LORETO Boyd; When: Call to arrange an appointment; Reason: Recheck today's complaints, Continuance of care. - Problem is new. - Symptoms are unchanged. Historical: - Allergies: No known drug Allergies; - Home Meds: 1. none - PMHx: none; - PSHx: none; - Social history: Smoking status: Patient states was never smoker of tobacco. No barriers to communication noted, The patient speaks fluent [place] Islander, Speaks appropriately for age, Preferred Language: [place] Islander. - Family history: Not pertinent. - : The pt / caregiver states he / she is not on anticoagulants. Home medication list is obtained from the patient. - Exposure Risk Screening:: None identified. 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 7 in. (170.18 cm) (R); Pain 8/10; 06/23 01:12 BP 102 / 51; Pulse 73; Resp 18; Temp 97.4(O); Pulse Ox 99% on R/A; Pain 0/10; kb5 06/22 22:24 Body Mass Index 19.58 (56.70 kg, 170.18 cm) lr2 MDM: 06/22 22:32 Bladder Scan please ordered. lf1 23:03 IV Saline Lock ordered. mo1 23:03 Undress patient appropriately for examination ordered. mo1 23:03 ketorolac 30 mg IVP once ordered. mo1 23:04 NOTHING BY MOUTH+DIET ordered. EDMS 23:04 CBC with Diff Ordered. EDMS 23:04 BMP Ordered. EDMS 23:04 Liver Profile Ordered. EDMS 23:04 Urinalysis Ordered. EDMS 23:05 Urine Culture Ordered. EDMS 23:05 US Renal Ordered. EDMS 23:45 Financial registration complete. zo 23:46 [facility] Payment Agreement was scanned into [employer] and attached to record. zo 23:52 Urinalysis Reviewed. mo1 23:53 BMP Reviewed. mo1 23:57 CBC with Diff Reviewed. mo1 23:57 Liver Profile Reviewed. mo1 06/23 00:38 cefTRIAXone 1 grams IVPB once over 30 mins; dilute in 50mL of NS or D5W ordered. mo1 00:38 Ciprofloxacin 500 mg PO once ordered. mo1 00:39 GC & Chlamydia Amplification Ordered. EDMS 00:39 Wet Prep Ordered. EDMS 00:41 US Renal Reviewed. mo1 00:44 Urine Test-In Lab Ordered. EDMS 00:56 Urine Test-In Lab Reviewed. mo1 00:57 Wet Prep Reviewed. mo1 Administered Medications: 06/22 23:35 Drug: ketorolac 30 mg [ketorolac 30 mg/mL (1 mL) injection solution (1 mL)] Route: IVP; ld5 Site: right antecubital; 06/23 00:05 Follow up: Response: Pain is resolved js15 01:07 Drug: cefTRIAXone 1 grams [ceftriaxone 1 gram solution for injection] Route: IVPB; js15 Infused Over: 30 mins; Site: right antecubital; 01:39 Follow up: IV Status: Completed infusion js15 01:07 Drug: Ciprofloxacin 500 mg [ciprofloxacin 500 mg tablet (1 tabs)] Route: PO; js15 Signatures: Dispatcher [employer] EDMS Carlos Royal Lisa,RN RN lf1 Ivan Mercado PA PA mo1 Griselda Collado RN RN js15 Patsy Finnegan RN ld5 The chart was reviewed and I authenticate all verbal orders and agree with the evaluation and treatment provided.Corrections: (The following items were deleted from the chart) 06/22 23:22 23:03 Lucy lazo mo1 js15 Attachments: 23:46 [facility] Payment Agreement zo Chart Complete MTDD
--- NOTE | 2016-06-25 02:41 | EDDOCDS ---
Nurse's Notes [facility] Name: Thomas Ledbetter Age: 20 yrs Sex: Female : 1995 Arrival Date: 06/22/2016 Time: 22:23 Bed I7 29 Private MD: LORETO Boyd Diagnosis: Urinary tract infection, site not specified Presentation: 06/22 22:27 Presenting complaint: Patient states: Pt states she has been unable to urinate since lf1 3am this morning. Currently having 8/10 suprapubic pain. Pt. states prior to onset of symptoms she was not having any other symptoms. Denies nausea and vomiting. Presents to triage area rocking back and forth, in obvious discomfort. Adult Sepsis Screening: The patient does not have new or worsening altered mentation. Patient's respiratory rate is less than 22. Systolic blood pressure is greater than 100. Patient has a qSOFA score of 0- Negative Sepsis Screen. Suicide/Homicide risk assessment- the patient denies having any suicidal and/or homicidal ideations and does not present with any other emotional, behavioral or mental health complaints. Status: Patient is not a director of medical services or dependent. Transition of care: patient was not received from another setting of care. 22:27 Acuity: JOE Level 3 lf1 22:27 Method Of Arrival: Walkin/Carried/Asstd lf1 Triage Assessment: 22:29 General: Appears slender, uncomfortable, Behavior is cooperative. Pain: Location: lf1 pelvis Pain currently is 8 out of 10 on a pain scale. Neurological: Level of Consciousness is awake, alert. Respiratory: Respiratory effort is even, unlabored. : Reports inability to void since 0300. 06/23 00:10 HIV screening NA for this visit Offered previously. js15 [employer]: 06/22 22:29 0, Living 0, LMP 04/30/2016 lf1 Historical: - Allergies: No known drug Allergies; - Home Meds: 1. none - PMHx: none; - PSHx: none; - Social history: Smoking status: Patient states was never smoker of tobacco. No barriers to communication noted, The patient speaks fluent Burmese, Speaks appropriately for age, Preferred Language: Burmese. - Family history: Not pertinent. - : The pt / caregiver states he / she is not on anticoagulants. Home medication list is obtained from the patient. - Exposure Risk Screening:: None identified. Screenin/28 00:09 Screening information is obtained from the patient. Fall risk: No risks identified. js15 Assistance ADL's: requires no assistance with activities of daily living. Abuse/DV Screen: The patient / caregiver reports he/she is: not in a situation that causes fear, pain or injury. Nutritional screening: No deficits noted. Advance Directives: There is no active DNR order. home support is adequate. Assessment: 06/22 22:30 Reassessment: bladder scan performed to find <25 ml urine; however, pt is tender to js15 palpation in suprapubic area and bladder is distended; findings reported to Karen SHI and orders given. General: Appears uncomfortable, Behavior is appropriate for age, cooperative. Pain: Location: suprapubic area. Neurological: Level of Consciousness is awake, alert, obeys commands, Oriented to person, place, time. Respiratory: Airway is patent Respiratory effort is even, unlabored, Respiratory pattern is regular, symmetrical. GI: Abdomen is distended, in suprapubic region. : Last void was June 22, 2016. at 03:00. Derm: Skin is pink, warm & dry. 23:30 GI:. js15 23:45 Reassessment: Pt in US for imaging study. 15 06/23 00:30 Reassessment: Patient appears in no apparent distress at this time. Pt sleeping upon js15 entry to room with family at bedside; respirations even and unlabored; arouses easily and denies pain; skin normal, warm, dry. 01:30 General: Appears in no apparent distress, comfortable, to be sleeping. Respiratory: js15 Airway is patent Respiratory effort is even, unlabored, Respiratory pattern is regular, symmetrical. Derm: Skin is normal. Vital Signs: 06/22 22:24 BP 109 / 57; Pulse 79; Resp 16; Temp 97.2(O); Pulse Ox 100% on R/A; Weight 56.7 kg (R); lr2 Height 5 ft. 7 in. (170.18 cm) (R); Pain 8/10; 06/23 01:12 BP 102 / 51; Pulse 73; Resp 18; Temp 97.4(O); Pulse Ox 99% on R/A; Pain 0/10; kb5 06/22 22:24 Body Mass Index 19.58 (56.70 kg, 170.18 cm) lr2 Vitals: 06/22 22:24 Log In Time: June 22, 2016 at 22:23. lr2 ED Course: 22:24 Patient visited by Patsy Brown. lr2 22:24 Patient moved to Waiting lr2 22:26 Other - Complete Info On Cds is Private Physician. lr2 22:26 Oliver [facility] is Private Physician. lr2 22:26 Patient moved to Pre RCE lr2 22:29 Triage Initiated lf1 22:31 Patient moved to I7 lf1 22:35 attempted to insert 16 fr min catheter; able to insert approx. 1/3 of catheter tubing js15 and returned cloudy yellow urine, however pt began having extreme pain, crying out and tensing, and was unable to tolerate complete catheter insertion. Karen SHI was called to bedside to report findings and instructed this instructional writer to draw urine from catheter tubing for sample and to remove catheter; catheter tip removed with small amount of blood at tip of tube. will continue to monitor. 22:43 Ivan Mercado PA is PHCP. mo1 22:43 Harry Negron DO is Attending Physician. mo1 22:55 Patient visited by Ivan Mercado PA. mo1 23:10 Inserted saline lock: 20 gauge in right antecubital area The patient tolerated the js15 procedure well. 23:41 Patient name changed from Amonee\S\\S\Ledbetter\S\ to Amonee\S\ \S\Ledbetter. EDMS 23:45 Patient moved to Ultrasound dmg 23:46 [facility] Payment Agreement was scanned into [employer] and attached to record. zo 06/23 00:01 Patient moved to I dmg 00:09 The patient / caregiver is instructed regarding the plan of care and ED course. js15 00:10 Patient visited by Griselda Collado RN. js15 00:39 US Renal Returned. EDMS 00:40 Assist provider with pelvic exam: Set up pelvic tray. Specimens sent to lab. Performed js15 by Ivan SHI Patient tolerated well. 00:43 Wet Prep Sent. js15 00:44 GC & Chlamydia Amplification Sent. js15 00:44 Urine Test-In Lab Sent. js15 00:59 Oliver [facility] is Referral Physician. mo1 01:12 Patient visited by Robert Sweet PCA. kb5 01:38 Discontinued IV lock intact, bleeding controlled, pressure dressing applied, No js15 redness/swelling at site. Administered Medications: 06/22 23:35 Drug: ketorolac 30 mg [ketorolac 30 mg/mL (1 mL) injection solution (1 mL)] Route: IVP; ld5 Site: right antecubital; 06/23 00:05 Follow up: Response: Pain is resolved 01:07 Drug: cefTRIAXone 1 grams [ceftriaxone 1 gram solution for injection] Route: IVPB; js15 Infused Over: 30 mins; Site: right antecubital; 01:39 Follow up: IV Status: Completed infusion 01:07 Drug: Ciprofloxacin 500 mg [ciprofloxacin 500 mg tablet (1 tabs)] Route: PO; js15 Order Results: Lab Order: CBC with Diff; SPEC'M 06/22/16 23:11 Test: WHITE BLOOD COUNT; Value: 6.3; Range: 4.0-10.0; Units: K/mm3; Status: F Test: RED BLOOD COUNT; Value: 4.21; Range: 4.00-5.40; Units: M/mm3; Status: F Test: HEMOGLOBIN; Value: 12.7; Range: 12.0-16.0; Units: g/dl; Status: F Test: HEMATOCRIT; Value: 38.1; Range: 36.0-47.0; Units: %; Status: F Test: MEAN CORPUSCULAR VOLUME; Value: 90.4; Range: 80.0-96.0; Units: fl; Status: F Test: MEAN CORPUSCULAR HEMOGLOBIN; Value: 30.2; Range: 27.0-33.0; Units: pg; Status: F Test: MEAN CORPUSCULAR HGB CONC; Value: 33.5; Range: 32.0-36.5; Units: g/dl; Status: F Test: RED CELL DISTRIBUTION WIDTH; Value: 12.9; Range: 11.5-14.5; Units: %; Status: F Test: PLATELET COUNT, AUTOMATED; Value: 181; Range: 150-450; Units: k/mm3; Status: F Test: NEUTROPHILS %; Value: 62.7; Range: 36.0-66.0; Units: %; Status: F Test: LYMPH %; Value: 28.3; Range: 24.0-44.0; Units: %; Status: F Test: MONO %; Value: 4.2; Range: 0.0-5.0; Units: %; Status: F Test: EOS %; Value: 2.0; Range: 0.0-3.0; Units: %; Status: F Test: BASO %; Value: 0.5; Range: 0.0-1.0; Units: %; Status: F Test: LARGE UNSTAINED CELL %; Value: 2.3; Range: 0.0-4.0; Units: %; Status: F Test: NEUTROPHILS #; Value: 4.0; Range: 1.8-7.7; Units: K/mm3; Status: F Test: LYMPH #; Value: 1.9; Range: 1.5-6.5; Units: K/mm3; Status: F Test: MONO #; Value: 0.3; Range: 0.0-0.8; Units: K/mm3; Status: F Test: EOS #; Value: 0.1; Range: 0.0-0.50; Units: K/mm3; Status: F Test: BASO #; Value: 0.0; Range: 0.0-0.2; Units: K/mm3; Status: F Test: LARGE UNSTAINED CELL #; Value: 0.2; Range: 0.0-0.4; Units: K/mm3; Status: F Lab Order: [facility]; SPEC'M 06/22/16 23:11 Test: GLUCOSE, FASTING; Value: 108; Range: 70-105; Abnormal: Above high normal; Units: MG/DL; Status: F Test: BLOOD UREA NITROGEN; Value: 10; Range: 7-18; Units: MG/DL; Status: F Test: CREATININE FOR GFR; Value: 0.84; Range: 0.55-1.02; Units: MG/DL; Status: F Test: SODIUM LEVEL; Value: 142; Range: 136-145; Units: MEQ/L; Status: F Test: POTASSIUM SERUM; Value: 4.0; Range: 3.5-5.1; Units: MEQ/L; Status: F Test: CHLORIDE LEVEL; Value: 107; Range: 98-107; Units: MEQ/L; Status: F Test: CARBON DIOXIDE LEVEL; Value: 26; Range: 21-32; Units: MEQ/L; Status: F Test: ANION GAP; Value: 9; Range: 8-16; Units: MEQ/L; Status: F Test: CALCIUM LEVEL; Value: 9.1; Range: 8.5-10.1; Units: MG/DL; Status: F Lab Order: Liver Profile; SPEC'M 06/22/16 23:11 Test: AST/SGOT; Value: 24; Range: 15-37; Units: U/L; Status: F Test: ALT/SGPT; Value: 27; Range: 12-78; Units: U/L; Status: F Test: ALKALINE PHOSPHATASE; Value: 81; Range: 45-117; Units: U/L; Status: F Test: BILIRUBIN,TOTAL; Value: 0.4; Range: 0.2-1.0; Units: MG/DL; Status: F Test: BILIRUBIN,DIRECT; Value: 0.1; Range: 0.0-0.2; Units: MG/DL; Status: F Test: TOTAL PROTEIN; Value: 7.5; Range: 6.4-8.2; Units: GM/DL; Status: F Test: ALBUMIN; Value: 3.8; Range: 3.2-5.2; Units: GM/DL; Status: F Test: ALBUMIN/GLOBULIN RATIO; Value: 1.03; Range: 1.00-1.93; Status: F Lab Order: Urinalysis; SPEC'M 06/22/16 23:11 Test: APPEARANCE, URINE; Value: CLOUDY; Range: CLEAR; Abnormal: Above high normal; Status: F Test: COLOR, URINE; Value: YELLOW; Range: YELLOW; Status: F Test: PH,URINE; Value: 5.0; Range: 5.0-9.0; Units: UNITS; Status: F Test: SPECIFIC GRAVITY URINE AUTO; Value: 1.034; Range: 1.002-1.035; Status: F Test: PROTEIN, URINE AUTO; Value: 2+; Range: NEGATIVE; Abnormal: Above high normal; Units: mg/dL; Status: F Test: GLUCOSE, URINE (UA) AUTO; Value: NEGATIVE; Range: NEGATIVE; Units: mg/dL; Status: F Test: KETONE, URINE AUTO; Value: TRACE; Range: NEGATIVE; Abnormal: Above high normal; Units: mg/dL; Status: F Test: UROBILINOGEN, URINE AUTO; Value: 0.2; Range: 0.0-2.0; Units: mg/dL; Status: F Test: BILIRUBIN, URINE AUTO; Value: NEGATIVE; Range: NEGATIVE; Status: F Test: NITRITE, URINE AUTO; Value: NEGATIVE; Range: NEGATIVE; Status: F Test: LEUKOCYTE ESTERASE, URINE AUTO; Value: 2+; Range: NEGATIVE; Abnormal: Above high normal; Status: F Test: BLOOD, URINE BLOOD; Value: 3+; Range: NEGATIVE; Abnormal: Above high normal; Status: F Test: WBC, URINE AUTO; Value: TNTC; Range: 0-3; Abnormal: Above high normal; Units: /HPF; Status: F Test: RBC, URINE AUTO; Value: TNTC; Range: 0-3; Abnormal: Above high normal; Units: /HPF; Status: F Test: BACTERIA, URINE AUTO; Value: 1+; Range: NEGATIVE; Abnormal: Above high normal; Status: F Test: SQUAMOUS EPITHELIAL CELL UR AU; Value: 3; Range: 0-6; Units: /HPF; Status: F Test: MUCUS, URINE; Value: LARGE; Range: NEGATIVE; Status: F Test: HYALINE CAST, URINE AUTO; Value: 0; Range: 0-1; Units: /LPF; Status: F Test: AMORPHOUS SEDIMENT; Value: SMALL; Range: NEGATIVE; Abnormal: Above high normal; Status: F Lab Order: GC & Chlamydia Amplification; SPEC'M 06/23/16 00:42 Test: CHLAMYDIA DNA AMPLIFICATION; Value: NEGATIVE; Range: NEGATIVE; Status: F Test: GC DNA AMPLIFICATION; Value: NEGATIVE; Range: NEGATIVE; Status: F Lab Order: Wet Prep; SPEC'M 06/23/16 00:42 Test: WET PREP; Value: WET PREP RESULT; Status: F Test: WET PREP; Value: MANY RBC; Status: F Test: WET PREP; Value: MODERATE WBC; Status: F Test: WET PREP; Value: MODERATE EPITHELIAL CELLS PRESENT; Status: F Test: WET PREP; Value: MODERATE SHORT RODS PRESENT; Status: F Lab Order: Urine Test-In Lab; SPEC'M 06/22/16 23:11 Test: URINE PREG TEST; Value: NEGATIVE; Range: NEGATIVE; Status: F Radiology Order: US Renal Test: US Renal REASON FOR EXAMINATION: suprapubic pain; ; Clinical history: suprapubic pain.; Findings: The urinary bladder appears unremarkable, measuring 4.5 x 3.2 x 2.0 cm. No urinary bladder; masses are seen. The right kidney measures 10.0 x 4.6 x 4.1 cm. The left kidney measures 10.3 x 4.7 x; 6.1 cm. The kidneys demonstrate normal echotexture and echogenicity. There is no evidence of hydrone; phrosis or nephrolithiasis. No renal masses are seen. No free fluid is appreciated.; Impression: Unremarkable ultrasound examination of the kidneys.; ; Outcome: 00:09 Ultrasound Study completed. js15 00:59 Discharge ordered by Provider. mo1 01:38 Discharge Assessment: Patient awake, alert and oriented x 3. No cognitive and/or js15 functional deficits noted. Patient verbalized understanding of disposition instructions. patient administered narcotics - no. The following High Risk Discharge criteria are identified: None. Discharged to home ambulatory, with significant other. Condition: stable Condition: improved. Discharge instructions given to patient, Instructed on discharge instructions, follow up and referral plans. medication usage, Demonstrated understanding of instructions, medications, Pt was receptive of discharge instructions/ teaching. Prescriptions given X 2. Property sent home with patient. 01:40 Patient left the ED. js15 Signatures: Dispatcher [employer] EDLydia Pearl Zoeann zo [place], Kristopher, J2EE DEVELOPER J2EE DEVELOPER kb5 Carina Arias,RN RN lf1 Patsy Finnegan,RN RN ld5 Ivan Mercado PA PA mo1 Griselda Collado,RN RN js15 Patsy Brown lr2 Corrections: (The following items were deleted from the chart) 00:07 06/22 23:35 attempted to insert 16 fr min catheter; able to insert approx. 1/3 of js15 catheter tubing and returned cloudy yellow urine, however pt began having extreme pain, crying out and tensing, and was unable to tolerate complete catheter insertion. Karen SHI was called to bedside to report findings and instructed this instructional writer to draw urine from catheter tubing for sample and to remove catheter; catheter tip removed with small amount of blood at tip of tube. will continue to monitor 15 06/23 00:06/22 23:30 General: Appears uncomfortable, Behavior is appropriate for age, js15 cooperative, 15 06/23 00:06/22 23:30 Pain: Location: suprapubic area 15 [facility] 06/23 99:06/22 23:30 Neurological: Level of Consciousness is awake, alert, obeys commands, js15 Oriented to person, place, time, 15 06/23 00:06/22 23:30 Respiratory: Airway is patent Respiratory effort is even, unlabored, js15 Respiratory pattern is regular, symmetrical, [facility] 06/23 00:06/22 23:30 : Last void was June 22, 2016. at 03:00. 15 [facility] 06/23 00:06/22 23:30 GI: Abdomen is distended, in suprapubic region 15 [facility] 06/23 00:06/22 23:30 Derm: Skin is pink, warm & dry. [place] [id number] 06/23 00:06/22 23:30 Reassessment: bladder scan performed to find <25 ml urine; however, pt is js15 tender to palpation in suprapubic area and bladder is distended; findings reported to Karen SHI and orders given. 15 Chart Complete MTDD
--- NOTE | 2016-06-25 10:24 | EDDOCDS ---
Physician Documentation [facility] Name: Thomas Ledbetter Age: 20 yrs Sex: Female : 1995 Arrival Date: 06/22/2016 Time: 22:23 Bed I7 / 29 Private MD: LORETO Boyd Disposition: 06/23/16 00:59 Discharged to Home/Self Care. Impression: Urinary tract infection, site not specified. - Condition is Stable. - Discharge Instructions: Abdominal Pain, Adult, Urinary Tract Infection. - Prescriptions for Cipro 500 mg Oral Tablet - take 1 tablet by ORAL route every 12 hours; 14 tablet. Pyridium 200 mg Oral Tablet - take 1 tablet by ORAL route every 8 hours for 3 days; 9 tablet. - Work Release Form - 2 day, Medication Reconciliation, Local Pharmacy Hours form. - Follow up: LORETO Boyd; When: Call to arrange an appointment; Reason: Recheck today's complaints, Continuance of care. - Problem is new. - Symptoms are unchanged. Historical: - Allergies: No known drug Allergies; - Home Meds: 1. none - PMHx: none; - PSHx: none; - Social history: Smoking status: Patient states was never smoker of tobacco. No barriers to communication noted, The patient speaks fluent Slovak, Speaks appropriately for age, Preferred Language: Slovak. - Family history: Not pertinent. - : The pt / caregiver states he / she is not on anticoagulants. Home medication list is obtained from the patient. - Exposure Risk Screening:: None identified. 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 7 in. (170.18 cm) (R); Pain 8/10; 06/23 01:12 BP 102 / 51; Pulse 73; Resp 18; Temp 97.4(O); Pulse Ox 99% on R/A; Pain 0/10; kb5 06/22 22:24 Body Mass Index 19.58 (56.70 kg, 170.18 cm) lr2 MDM: 06/22 22:32 Bladder Scan please ordered. lf1 23:03 IV Saline Lock ordered. mo1 23:03 Undress patient appropriately for examination ordered. mo1 23:03 ketorolac 30 mg IVP once ordered. mo1 23:04 NOTHING BY MOUTH+DIET ordered. EDMS 23:04 CBC with Diff Ordered. EDMS 23:04 BMP Ordered. EDMS 23:04 Liver Profile Ordered. EDMS 23:04 Urinalysis Ordered. EDMS 23:05 Urine Culture Ordered. EDMS 23:05 US Renal Ordered. EDMS 23:45 Financial registration complete. zo 23:46 [facility] [place] Agreement was scanned into [employer] and attached to record. zo 23:52 Urinalysis Reviewed. mo1 23:53 BMP Reviewed. mo1 23:57 CBC with Diff Reviewed. mo1 23:57 Liver Profile Reviewed. mo1 06/23 00:38 cefTRIAXone 1 grams IVPB once over 30 mins; dilute in 50mL of NS or D5W ordered. mo1 00:38 Ciprofloxacin 500 mg PO once ordered. mo1 00:39 GC & Chlamydia Amplification Ordered. EDMS 00:39 Wet Prep Ordered. EDMS 00:41 US Renal Reviewed. mo1 00:44 Urine Test-In Lab Ordered. EDMS 00:56 Urine Test-In Lab Reviewed. mo1 00:57 Wet Prep Reviewed. mo1 Administered Medications: 06/22 23:35 Drug: ketorolac 30 mg [ketorolac 30 mg/mL (1 mL) injection solution (1 mL)] Route: IVP; ld5 Site: right antecubital; 06/23 00:05 Follow up: Response: Pain is resolved js15 01:07 Drug: cefTRIAXone 1 grams [ceftriaxone 1 gram solution for injection] Route: IVPB; js15 Infused Over: 30 mins; Site: right antecubital; 01:39 Follow up: IV Status: Completed infusion js15 01:07 Drug: Ciprofloxacin 500 mg [ciprofloxacin 500 mg tablet (1 tabs)] Route: PO; js15 Signatures: Dispatcher [employer] EDMS Carlos Royal Lisa,RN RN lf1 Ivan Mercado PA PA mo1 Griselda Collado RN RN js15 Patsy Finnegan RN ld5 The chart was reviewed and I authenticate all verbal orders and agree with the evaluation and treatment provided.Corrections: (The following items were deleted from the chart) 06/22 23:22 23:03 Lucy lazo mo1 js15 Attachments: 23:46 [facility] [place] Agreement zo MTDD
--- NOTE | 2016-06-25 10:25 | EDDOCDS ---
Nurse's Notes [facility] Name: Thomas Ledbetter Age: 20 yrs Sex: Female : 1995 Arrival Date: 06/22/2016 Time: 22:23 Bed I7 29 Private MD: LORETO Boyd Diagnosis: Urinary tract infection, site not specified Presentation: 06/22 22:27 Presenting complaint: Patient states: Pt states she has been unable to urinate since lf1 3am this morning. Currently having 8/10 suprapubic pain. Pt. states prior to onset of symptoms she was not having any other symptoms. Denies nausea and vomiting. Presents to triage area rocking back and forth, in obvious discomfort. Adult Sepsis Screening: The patient does not have new or worsening altered mentation. Patient's respiratory rate is less than 22. Systolic blood pressure is greater than 100. Patient has a qSOFA score of 0- Negative Sepsis Screen. Suicide/Homicide risk assessment- the patient denies having any suicidal and/or homicidal ideations and does not present with any other emotional, behavioral or mental health complaints. Status: Patient is not a vice president of customer service or dependent. Transition of care: patient was not received from another setting of care. 22:27 Acuity: JOE Level 3 lf1 22:27 Method Of Arrival: Walkin/Carried/Asstd lf1 Triage Assessment: 22:29 General: Appears slender, uncomfortable, Behavior is cooperative. Pain: Location: lf1 pelvis Pain currently is 8 out of 10 on a pain scale. Neurological: Level of Consciousness is awake, alert. Respiratory: Respiratory effort is even, unlabored. : Reports inability to void since 0300. 06/23 00:10 HIV screening NA for this visit Offered previously. 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 none - PMHx: none; - PSHx: none; - Social history: Smoking status: Patient states was never smoker of tobacco. No barriers to communication noted, The patient speaks fluent Montenegrin, Speaks appropriately for age, Preferred Language: Montenegrin. - Family history: Not pertinent. - : The pt / caregiver states he / she is not on anticoagulants. Home medication list is obtained from the patient. - Exposure Risk Screening:: None identified. Screenin/28 00:09 Screening information is obtained from the patient. Fall risk: No risks identified. js15 Assistance ADL's: requires no assistance with activities of daily living. Abuse/DV Screen: The patient / caregiver reports he/she is: not in a situation that causes fear, pain or injury. Nutritional screening: No deficits noted. Advance Directives: There is no active DNR order. home support is adequate. Assessment: 06/22 22:30 Reassessment: bladder scan performed to find <25 ml urine; however, pt is tender to js15 palpation in suprapubic area and bladder is distended; findings reported to Karen SHI and orders given. General: Appears uncomfortable, Behavior is appropriate for age, cooperative. Pain: Location: suprapubic area. Neurological: Level of Consciousness is awake, alert, obeys commands, Oriented to person, place, time. Respiratory: Airway is patent Respiratory effort is even, unlabored, Respiratory pattern is regular, symmetrical. GI: Abdomen is distended, in suprapubic region. : Last void was June 22, 2016. at 03:00. Derm: Skin is pink, warm & dry. 23:30 GI:. js15 23:45 Reassessment: Pt in US for imaging study. 15 06/23 00:30 Reassessment: Patient appears in no apparent distress at this time. Pt sleeping upon js15 entry to room with family at bedside; respirations even and unlabored; arouses easily and denies pain; skin normal, warm, dry. 01:30 General: Appears in no apparent distress, comfortable, to be sleeping. Respiratory: js15 Airway is patent Respiratory effort is even, unlabored, Respiratory pattern is regular, symmetrical. Derm: Skin is normal. Vital Signs: 06/22 22:24 BP 109 / 57; Pulse 79; Resp 16; Temp 97.2(O); Pulse Ox 100% on R/A; Weight 56.7 kg (R); lr2 Height 5 ft. 7 in. (170.18 cm) (R); Pain 8/10; 06/23 01:12 BP 102 / 51; Pulse 73; Resp 18; Temp 97.4(O); Pulse Ox 99% on R/A; Pain 0/10; kb5 06/22 22:24 Body Mass Index 19.58 (56.70 kg, 170.18 cm) lr2 Vitals: 06/22 22:24 Log In Time: June 22, 2016 at 22:23. lr2 ED Course: 22:24 Patient visited by Patsy Brown. lr2 22:24 Patient moved to Waiting lr2 22:26 Other - Complete Info On Cds is Private Physician. lr2 22:26 Oliver [facility] is Private Physician. lr2 22:26 Patient moved to Pre RCE lr2 22:29 Triage Initiated lf1 22:31 Patient moved to I7 lf1 22:35 attempted to insert 16 fr min catheter; able to insert approx. 1/3 of catheter tubing js15 and returned cloudy yellow urine, however pt began having extreme pain, crying out and tensing, and was unable to tolerate complete catheter insertion. Karen SHI was called to bedside to report findings and instructed this typewriter assembler to draw urine from catheter tubing for sample and to remove catheter; catheter tip removed with small amount of blood at tip of tube. will continue to monitor. 22:43 Ivan Mercado PA is PHCP. mo1 22:43 Harry Negron DO is Attending Physician. mo1 22:55 Patient visited by Ivan Mercado PA. mo1 23:10 Inserted saline lock: 20 gauge in right antecubital area The patient tolerated the js15 procedure well. 23:41 Patient name changed from Amonee\S\\S\Ledbetter\S\ to Amonee\S\ \S\Ledbetter. EDMS 23:45 Patient moved to Ultrasound dmg 23:46 REPLACED BY [facility] Payment Agreement was scanned into [employer] and attached to record. zo 06/23 00:01 Patient moved to I dmg 00:09 The patient / caregiver is instructed regarding the plan of care and ED course. js15 00:10 Patient visited by Griselda Clolado RN. js15 00:39 US Renal Returned. EDMS 00:40 Assist provider with pelvic exam: Set up pelvic tray. Specimens sent to lab. Performed js15 by Ivan SHI Patient tolerated well. 00:43 Wet Prep Sent. js15 00:44 GC & Chlamydia Amplification Sent. js15 00:44 Urine Test-In Lab Sent. js15 00:59 Oliver [facility] is Referral Physician. mo1 01:12 Patient visited by Robert Sweet PCA. kb5 01:38 Discontinued IV lock intact, bleeding controlled, pressure dressing applied, No js15 redness/swelling at site. Administered Medications: 06/22 23:35 Drug: ketorolac 30 mg [ketorolac 30 mg/mL (1 mL) injection solution (1 mL)] Route: IVP; ld5 Site: right antecubital; 06/23 00:05 Follow up: Response: Pain is resolved 01:07 Drug: cefTRIAXone 1 grams [ceftriaxone 1 gram solution for injection] Route: IVPB; js15 Infused Over: 30 mins; Site: right antecubital; 01:39 Follow up: IV Status: Completed infusion 01:07 Drug: Ciprofloxacin 500 mg [ciprofloxacin 500 mg tablet (1 tabs)] Route: PO; js15 Order Results: Lab Order: CBC with Diff; SPEC'M 06/22/16 23:11 Test: WHITE BLOOD COUNT; Value: 6.3; Range: 4.0-10.0; Units: K/mm3; Status: F Test: RED BLOOD COUNT; Value: 4.21; Range: 4.00-5.40; Units: M/mm3; Status: F Test: HEMOGLOBIN; Value: 12.7; Range: 12.0-16.0; Units: g/dl; Status: F Test: HEMATOCRIT; Value: 38.1; Range: 36.0-47.0; Units: %; Status: F Test: MEAN CORPUSCULAR VOLUME; Value: 90.4; Range: 80.0-96.0; Units: fl; Status: F Test: MEAN CORPUSCULAR HEMOGLOBIN; Value: 30.2; Range: 27.0-33.0; Units: pg; Status: F Test: MEAN CORPUSCULAR HGB CONC; Value: 33.5; Range: 32.0-36.5; Units: g/dl; Status: F Test: RED CELL DISTRIBUTION WIDTH; Value: 12.9; Range: 11.5-14.5; Units: %; Status: F Test: PLATELET COUNT, AUTOMATED; Value: 181; Range: 150-450; Units: k/mm3; Status: F Test: NEUTROPHILS %; Value: 62.7; Range: 36.0-66.0; Units: %; Status: F Test: LYMPH %; Value: 28.3; Range: 24.0-44.0; Units: %; Status: F Test: MONO %; Value: 4.2; Range: 0.0-5.0; Units: %; Status: F Test: EOS %; Value: 2.0; Range: 0.0-3.0; Units: %; Status: F Test: BASO %; Value: 0.5; Range: 0.0-1.0; Units: %; Status: F Test: LARGE UNSTAINED CELL %; Value: 2.3; Range: 0.0-4.0; Units: %; Status: F Test: NEUTROPHILS #; Value: 4.0; Range: 1.8-7.7; Units: K/mm3; Status: F Test: LYMPH #; Value: 1.9; Range: 1.5-6.5; Units: K/mm3; Status: F Test: MONO #; Value: 0.3; Range: 0.0-0.8; Units: K/mm3; Status: F Test: EOS #; Value: 0.1; Range: 0.0-0.50; Units: K/mm3; Status: F Test: BASO #; Value: 0.0; Range: 0.0-0.2; Units: K/mm3; Status: F Test: LARGE UNSTAINED CELL #; Value: 0.2; Range: 0.0-0.4; Units: K/mm3; Status: F Lab Order: [facility]; SPEC'M 06/22/16 23:11 Test: GLUCOSE, FASTING; Value: 108; Range: 70-105; Abnormal: Above high normal; Units: MG/DL; Status: F Test: BLOOD UREA NITROGEN; Value: 10; Range: 7-18; Units: MG/DL; Status: F Test: CREATININE FOR GFR; Value: 0.84; Range: 0.55-1.02; Units: MG/DL; Status: F Test: SODIUM LEVEL; Value: 142; Range: 136-145; Units: MEQ/L; Status: F Test: POTASSIUM SERUM; Value: 4.0; Range: 3.5-5.1; Units: MEQ/L; Status: F Test: CHLORIDE LEVEL; Value: 107; Range: 98-107; Units: MEQ/L; Status: F Test: CARBON DIOXIDE LEVEL; Value: 26; Range: 21-32; Units: MEQ/L; Status: F Test: ANION GAP; Value: 9; Range: 8-16; Units: MEQ/L; Status: F Test: CALCIUM LEVEL; Value: 9.1; Range: 8.5-10.1; Units: MG/DL; Status: F Lab Order: Liver Profile; SPEC'M 06/22/16 23:11 Test: AST/SGOT; Value: 24; Range: 15-37; Units: U/L; Status: F Test: ALT/SGPT; Value: 27; Range: 12-78; Units: U/L; Status: F Test: ALKALINE PHOSPHATASE; Value: 81; Range: 45-117; Units: U/L; Status: F Test: BILIRUBIN,TOTAL; Value: 0.4; Range: 0.2-1.0; Units: MG/DL; Status: F Test: BILIRUBIN,DIRECT; Value: 0.1; Range: 0.0-0.2; Units: MG/DL; Status: F Test: TOTAL PROTEIN; Value: 7.5; Range: 6.4-8.2; Units: GM/DL; Status: F Test: ALBUMIN; Value: 3.8; Range: 3.2-5.2; Units: GM/DL; Status: F Test: ALBUMIN/GLOBULIN RATIO; Value: 1.03; Range: 1.00-1.93; Status: F Lab Order: Urinalysis; SPEC'M 06/22/16 23:11 Test: APPEARANCE, URINE; Value: CLOUDY; Range: CLEAR; Abnormal: Above high normal; Status: F Test: COLOR, URINE; Value: YELLOW; Range: YELLOW; Status: F Test: PH,URINE; Value: 5.0; Range: 5.0-9.0; Units: UNITS; Status: F Test: SPECIFIC GRAVITY URINE AUTO; Value: 1.034; Range: 1.002-1.035; Status: F Test: PROTEIN, URINE AUTO; Value: 2+; Range: NEGATIVE; Abnormal: Above high normal; Units: mg/dL; Status: F Test: GLUCOSE, URINE (UA) AUTO; Value: NEGATIVE; Range: NEGATIVE; Units: mg/dL; Status: F Test: KETONE, URINE AUTO; Value: TRACE; Range: NEGATIVE; Abnormal: Above high normal; Units: mg/dL; Status: F Test: UROBILINOGEN, URINE AUTO; Value: 0.2; Range: 0.0-2.0; Units: mg/dL; Status: F Test: BILIRUBIN, URINE AUTO; Value: NEGATIVE; Range: NEGATIVE; Status: F Test: NITRITE, URINE AUTO; Value: NEGATIVE; Range: NEGATIVE; Status: F Test: LEUKOCYTE ESTERASE, URINE AUTO; Value: 2+; Range: NEGATIVE; Abnormal: Above high normal; Status: F Test: BLOOD, URINE BLOOD; Value: 3+; Range: NEGATIVE; Abnormal: Above high normal; Status: F Test: WBC, URINE AUTO; Value: TNTC; Range: 0-3; Abnormal: Above high normal; Units: /HPF; Status: F Test: RBC, URINE AUTO; Value: TNTC; Range: 0-3; Abnormal: Above high normal; Units: /HPF; Status: F Test: BACTERIA, URINE AUTO; Value: 1+; Range: NEGATIVE; Abnormal: Above high normal; Status: F Test: SQUAMOUS EPITHELIAL CELL UR AU; Value: 3; Range: 0-6; Units: /HPF; Status: F Test: MUCUS, URINE; Value: LARGE; Range: NEGATIVE; Status: F Test: HYALINE CAST, URINE AUTO; Value: 0; Range: 0-1; Units: /LPF; Status: F Test: AMORPHOUS SEDIMENT; Value: SMALL; Range: NEGATIVE; Abnormal: Above high normal; Status: F Lab Order: Urine Culture; SPEC'M 06/22/16 23:11 Test: URINE CULTURE; Value: <EXTERNAL COMMENT eCWMed> FULL REPORT IN LAB NOTES (eCW and Medent).; Status: F Test: URINE CULTURE; Value: ORGANISM 1: ESCHERICHIA COLI; Status: F Test: URINE CULTURE; Value: ESCHERICHIA COLI; Status: F Test: URINE CULTURE; Value: COLONY COUNT CFU/ml >100,000; Status: F Test: URINE CULTURE; Value: GRAM NEG SENSI - VITEK 80; Status: F Test: URINE CULTURE; Value: Method: VIT2; Status: F Test: URINE CULTURE; Value: EXTD BRD SPCTRM BETA LACTAMASE -; Status: F Test: URINE CULTURE; Value: TRIMETHOPRIM/SULFAMETHOXAZOLE <=20 S; Status: F Test: URINE CULTURE; Value: AMPICILLIN <=2 S; Status: F Test: URINE CULTURE; Value: GENTAMICIN <=1 S; Status: F Test: URINE CULTURE; Value: NITROFURANTOIN <=16 S; Status: F Test: URINE CULTURE; Value: CEFAZOLIN <=4 S; Status: F Test: URINE CULTURE; Value: LEVOFLOXACIN <=0.12 S; Status: F Test: URINE CULTURE; Value: TOBRAMYCIN <=1 S; Status: F Test: URINE CULTURE; Value: CEFTRIAXONE <=1 S; Status: F Test: URINE CULTURE; Value: CEFTAZIDIME <=1 S; Status: F Test: URINE CULTURE; Value: AMPICILLIN/SULBACTAM <=2 S; Status: F Test: URINE CULTURE; Value: PIPERACILLIN/TAZOBACTAM <=4 S; Status: F Test: URINE CULTURE; Value: AZTREONAM <=1 S; Status: F Test: URINE CULTURE; Value: ERTAPENEM <=0.5 S; Status: F Test: URINE CULTURE; Value: MEROPENEM <=0.25 S; Status: F Test: URINE CULTURE; Value: TIGECYCLINE <=0.5 S; Status: F Test: URINE CULTURE; Value: CEFEPIME <=1 S; Status: F Lab Order: GC & Chlamydia Amplification; SPEC'M 06/23/16 00:42 Test: CHLAMYDIA DNA AMPLIFICATION; Value: NEGATIVE; Range: NEGATIVE; Status: F Test: GC DNA AMPLIFICATION; Value: NEGATIVE; Range: NEGATIVE; Status: F Lab Order: Wet Prep; SPEC'M 06/23/16 00:42 Test: WET PREP; Value: WET PREP RESULT; Status: F Test: WET PREP; Value: MANY RBC; Status: F Test: WET PREP; Value: MODERATE WBC; Status: F Test: WET PREP; Value: MODERATE EPITHELIAL CELLS PRESENT; Status: F Test: WET PREP; Value: MODERATE SHORT RODS PRESENT; Status: F Lab Order: Urine Test-In Lab; SPEC'M 06/22/16 23:11 Test: URINE PREG TEST; Value: NEGATIVE; Range: NEGATIVE; Status: F Radiology Order: US Renal Test: US Renal REASON FOR EXAMINATION: suprapubic pain; ; Clinical history: suprapubic pain.; Findings: The urinary bladder appears unremarkable, measuring 4.5 x 3.2 x 2.0 cm. No urinary bladder; masses are seen. The right kidney measures 10.0 x 4.6 x 4.1 cm. The left kidney measures 10.3 x 4.7 x; 6.1 cm. The kidneys demonstrate normal echotexture and echogenicity. There is no evidence of hydrone; phrosis or nephrolithiasis. No renal masses are seen. No free fluid is appreciated.; Impression: Unremarkable ultrasound examination of the kidneys.; ; Outcome: 00:09 Ultrasound Study completed. js15 00:59 Discharge ordered by Provider. mo1 01:38 Discharge Assessment: Patient awake, alert and oriented x 3. No cognitive and/or js15 functional deficits noted. Patient verbalized understanding of disposition instructions. patient administered narcotics - no. The following High Risk Discharge criteria are identified: None. Discharged to home ambulatory, with significant other. Condition: stable Condition: improved. Discharge instructions given to patient, Instructed on discharge instructions, follow up and referral plans. medication usage, Demonstrated understanding of instructions, medications, Pt was receptive of discharge instructions/ teaching. Prescriptions given X 2. Property sent home with patient. 01:40 Patient left the ED. js15 Addendum: 06/25/2016 10:24 Narrative: Urine culture results reviewed with Dr. Berry and no change in treatment kcs needed. Signatures: Dispatcher [facility] ED[facility] Coty Blake RN RN Lydia Short Zoeann zo [place], Kristopher, RED MUD THICKENER OPERATOR RED MUD THICKENER OPERATOR kb5 Carina AriasRN RN lf1 Patsy Finnegan,RN RN colby5 Ivan Mercado PA PA mo1 Griselda Collado RN RN monica15 Patsy Brown lr2 Corrections: (The following items were deleted from the chart) 06/23 00:07 06/22 23:35 attempted to insert 16 fr min catheter; able to insert approx. 1/3 of js15 catheter tubing and returned cloudy yellow urine, however pt began having extreme pain, crying out and tensing, and was unable to tolerate complete catheter insertion. Karen SHI was called to bedside to report findings and instructed this typewriter assembler to draw urine from catheter tubing for sample and to remove catheter; catheter tip removed with small amount of blood at tip of tube. will continue to monitor [facility] 06/23 00:06/22 23:30 General: Appears uncomfortable, Behavior is appropriate for age, js15 cooperative, [facility] 06/23 00:06/22 23:30 Pain: Location: suprapubic area 15 [facility] 06/23 00:06/22 23:30 Neurological: Level of Consciousness is awake, alert, obeys commands, js15 Oriented to person, place, time, [facility] 06/23 00:06/22 23:30 Respiratory: Airway is patent Respiratory effort is even, unlabored, js15 Respiratory pattern is regular, symmetrical, [facility] 06/23 00:06/22 23:30 : Last void was June 22, 2016. at 03:00. [place] [id number] 06/23 00:06/22 23:30 GI: Abdomen is distended, in suprapubic region [place] [id number] 06/23 00:06/22 23:30 Derm: Skin is pink, warm & dry. [place] [id number] 06/23 00:06/22 23:30 Reassessment: bladder scan performed to find <25 ml urine; however, pt is js15 tender to palpation in suprapubic area and bladder is distended; findings reported to Karen SHI and orders given. [facility] MTDD
--- NOTE | 2016-06-25 10:25 | EDDOCDS ---
Physician Documentation [facility] Name: Thomas Ledbetter Age: 20 yrs Sex: Female : 1995 Arrival Date: 06/22/2016 Time: 22:23 Bed I7 / 29 Private MD: LORETO Boyd Disposition: 06/23/16 00:59 Discharged to Home/Self Care. Impression: Urinary tract infection, site not specified. - Condition is Stable. - Discharge Instructions: Abdominal Pain, Adult, Urinary Tract Infection. - Prescriptions for Cipro 500 mg Oral Tablet - take 1 tablet by ORAL route every 12 hours; 14 tablet. Pyridium 200 mg Oral Tablet - take 1 tablet by ORAL route every 8 hours for 3 days; 9 tablet. - Work Release Form - 2 day, Medication Reconciliation, Local Pharmacy Hours form. - Follow up: LORETO Boyd; When: Call to arrange an appointment; Reason: Recheck today's complaints, Continuance of care. - Problem is new. - Symptoms are unchanged. Historical: - Allergies: No known drug Allergies; - Home Meds: 1. none - PMHx: none; - PSHx: none; - Social history: Smoking status: Patient states was never smoker of tobacco. No barriers to communication noted, The patient speaks fluent Guatemalan, Speaks appropriately for age, Preferred Language: Guatemalan. - Family history: Not pertinent. - : The pt / caregiver states he / she is not on anticoagulants. Home medication list is obtained from the patient. - Exposure Risk Screening:: None identified. 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 7 in. (170.18 cm) (R); Pain 8/10; 06/23 01:12 BP 102 / 51; Pulse 73; Resp 18; Temp 97.4(O); Pulse Ox 99% on R/A; Pain 0/10; kb5 06/22 22:24 Body Mass Index 19.58 (56.70 kg, 170.18 cm) lr2 MDM: 06/22 22:32 Bladder Scan please ordered. lf1 23:03 IV Saline Lock ordered. mo1 23:03 Undress patient appropriately for examination ordered. mo1 23:03 ketorolac 30 mg IVP once ordered. mo1 23:04 NOTHING BY MOUTH+DIET ordered. EDMS 23:04 CBC with Diff Ordered. EDMS 23:04 BMP Ordered. EDMS 23:04 Liver Profile Ordered. EDMS 23:04 Urinalysis Ordered. EDMS 23:05 Urine Culture Ordered. EDMS 23:05 US Renal Ordered. EDMS 23:45 Financial registration complete. zo 23:46 [facility] Payment Agreement was scanned into [employer] and attached to record. zo 23:52 Urinalysis Reviewed. mo1 23:53 BMP Reviewed. mo1 23:57 CBC with Diff Reviewed. mo1 23:57 Liver Profile Reviewed. mo1 06/23 00:38 cefTRIAXone 1 grams IVPB once over 30 mins; dilute in 50mL of NS or D5W ordered. mo1 00:38 Ciprofloxacin 500 mg PO once ordered. mo1 00:39 GC & Chlamydia Amplification Ordered. EDMS 00:39 Wet Prep Ordered. EDMS 00:41 US Renal Reviewed. mo1 00:44 Urine Test-In Lab Ordered. EDMS 00:56 Urine Test-In Lab Reviewed. mo1 00:57 Wet Prep Reviewed. mo1 Administered Medications: 06/22 23:35 Drug: ketorolac 30 mg [ketorolac 30 mg/mL (1 mL) injection solution (1 mL)] Route: IVP; ld5 Site: right antecubital; 06/23 00:05 Follow up: Response: Pain is resolved js15 01:07 Drug: cefTRIAXone 1 grams [ceftriaxone 1 gram solution for injection] Route: IVPB; js15 Infused Over: 30 mins; Site: right antecubital; 01:39 Follow up: IV Status: Completed infusion js15 01:07 Drug: Ciprofloxacin 500 mg [ciprofloxacin 500 mg tablet (1 tabs)] Route: PO; js15 Signatures: Dispatcher [employer] EDMS Carlos Royal Lisa,RN RN lf1 Ivan Mercado PA PA mo1 Griselda Collado RN RN js15 Patsy Finnegan RN ld5 The chart was reviewed and I authenticate all verbal orders and agree with the evaluation and treatment provided.Corrections: (The following items were deleted from the chart) 06/22 23:22 23:03 Lucy lazo mo1 js15 Attachments: 23:46 [facility] Payment Agreement zo MTDD
--- NOTE | 2016-06-25 10:27 | EDDOCDS ---
Physician Documentation [facility] Name: Thomas Ledbetter Age: 20 yrs Sex: Female : 1995 Arrival Date: 06/22/2016 Time: 22:23 Bed I7 / 29 Private MD: LORETO Boyd Disposition: 06/23/16 00:59 Discharged to Home/Self Care. Impression: Urinary tract infection, site not specified. - Condition is Stable. - Discharge Instructions: Abdominal Pain, Adult, Urinary Tract Infection. - Prescriptions for Cipro 500 mg Oral Tablet - take 1 tablet by ORAL route every 12 hours; 14 tablet. Pyridium 200 mg Oral Tablet - take 1 tablet by ORAL route every 8 hours for 3 days; 9 tablet. - Work Release Form - 2 day, Medication Reconciliation, Local Pharmacy Hours form. - Follow up: LORETO Boyd; When: Call to arrange an appointment; Reason: Recheck today's complaints, Continuance of care. - Problem is new. - Symptoms are unchanged. Historical: - Allergies: No known drug Allergies; - Home Meds: 1. none - PMHx: none; - PSHx: none; - Social history: Smoking status: Patient states was never smoker of tobacco. No barriers to communication noted, The patient speaks fluent Citizen Of [place], Speaks appropriately for age, Preferred Language: Citizen Of [place]. - Family history: Not pertinent. - : The pt / caregiver states he / she is not on anticoagulants. Home medication list is obtained from the patient. - Exposure Risk Screening:: None identified. 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 7 in. (170.18 cm) (R); Pain 8/10; 06/23 01:12 BP 102 / 51; Pulse 73; Resp 18; Temp 97.4(O); Pulse Ox 99% on R/A; Pain 0/10; kb5 06/22 22:24 Body Mass Index 19.58 (56.70 kg, 170.18 cm) lr2 MDM: 06/22 22:32 Bladder Scan please ordered. lf1 23:03 IV Saline Lock ordered. mo1 23:03 Undress patient appropriately for examination ordered. mo1 23:03 ketorolac 30 mg IVP once ordered. mo1 23:04 NOTHING BY MOUTH+DIET ordered. EDMS 23:04 CBC with Diff Ordered. EDMS 23:04 BMP Ordered. EDMS 23:04 Liver Profile Ordered. EDMS 23:04 Urinalysis Ordered. EDMS 23:05 Urine Culture Ordered. EDMS 23:05 US Renal Ordered. EDMS 23:45 Financial registration complete. zo 23:46 [facility] Payment Agreement was scanned into [employer] and attached to record. zo 23:52 Urinalysis Reviewed. mo1 23:53 BMP Reviewed. mo1 23:57 CBC with Diff Reviewed. mo1 23:57 Liver Profile Reviewed. mo1 06/23 00:38 cefTRIAXone 1 grams IVPB once over 30 mins; dilute in 50mL of NS or D5W ordered. mo1 00:38 Ciprofloxacin 500 mg PO once ordered. mo1 00:39 GC & Chlamydia Amplification Ordered. EDMS 00:39 Wet Prep Ordered. EDMS 00:41 US Renal Reviewed. mo1 00:44 Urine Test-In Lab Ordered. EDMS 00:56 Urine Test-In Lab Reviewed. mo1 00:57 Wet Prep Reviewed. mo1 Administered Medications: 06/22 23:35 Drug: ketorolac 30 mg [ketorolac 30 mg/mL (1 mL) injection solution (1 mL)] Route: IVP; ld5 Site: right antecubital; 06/23 00:05 Follow up: Response: Pain is resolved js15 01:07 Drug: cefTRIAXone 1 grams [ceftriaxone 1 gram solution for injection] Route: IVPB; js15 Infused Over: 30 mins; Site: right antecubital; 01:39 Follow up: IV Status: Completed infusion js15 01:07 Drug: Ciprofloxacin 500 mg [ciprofloxacin 500 mg tablet (1 tabs)] Route: PO; js15 Signatures: Dispatcher [employer] EDMS Carlos Royal Lisa,RN RN lf1 Ivan Mercado PA PA mo1 Griselda Collado RN RN js15 Patsy Finnegan RN ld5 The chart was reviewed and I authenticate all verbal orders and agree with the evaluation and treatment provided.Corrections: (The following items were deleted from the chart) 06/22 23:22 23:03 Lucy lazo mo1 js15 Attachments: 23:46 [facility] Payment Agreement zo Chart Complete MTDD
--- NOTE | 2016-06-25 10:27 | EDDOCDS ---
Nurse's Notes [facility] Name: Thomas Ledbetter Age: 20 yrs Sex: Female : 1995 Arrival Date: 06/22/2016 Time: 22:23 Bed I7 29 Private MD: LORETO Boyd Diagnosis: Urinary tract infection, site not specified Presentation: 06/22 22:27 Presenting complaint: Patient states: Pt states she has been unable to urinate since lf1 3am this morning. Currently having 8/10 suprapubic pain. Pt. states prior to onset of symptoms she was not having any other symptoms. Denies nausea and vomiting. Presents to triage area rocking back and forth, in obvious discomfort. Adult Sepsis Screening: The patient does not have new or worsening altered mentation. Patient's respiratory rate is less than 22. Systolic blood pressure is greater than 100. Patient has a qSOFA score of 0- Negative Sepsis Screen. Suicide/Homicide risk assessment- the patient denies having any suicidal and/or homicidal ideations and does not present with any other emotional, behavioral or mental health complaints. Status: Patient is not a hospital food service worker or dependent. Transition of care: patient was not received from another setting of care. 22:27 Acuity: JOE Level 3 lf1 22:27 Method Of Arrival: Walkin/Carried/Asstd lf1 Triage Assessment: 22:29 General: Appears slender, uncomfortable, Behavior is cooperative. Pain: Location: lf1 pelvis Pain currently is 8 out of 10 on a pain scale. Neurological: Level of Consciousness is awake, alert. Respiratory: Respiratory effort is even, unlabored. : Reports inability to void since 0300. 06/23 00:10 HIV screening NA for this visit Offered previously. 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 none - PMHx: none; - PSHx: none; - Social history: Smoking status: Patient states was never smoker of tobacco. No barriers to communication noted, The patient speaks fluent [place], Speaks appropriately for age, Preferred Language: [place]. - Family history: Not pertinent. - : The pt / caregiver states he / she is not on anticoagulants. Home medication list is obtained from the patient. - Exposure Risk Screening:: None identified. Screenin/28 00:09 Screening information is obtained from the patient. Fall risk: No risks identified. js15 Assistance ADL's: requires no assistance with activities of daily living. Abuse/DV Screen: The patient / caregiver reports he/she is: not in a situation that causes fear, pain or injury. Nutritional screening: No deficits noted. Advance Directives: There is no active DNR order. home support is adequate. Assessment: 06/22 22:30 Reassessment: bladder scan performed to find <25 ml urine; however, pt is tender to js15 palpation in suprapubic area and bladder is distended; findings reported to Karen SHI and orders given. General: Appears uncomfortable, Behavior is appropriate for age, cooperative. Pain: Location: suprapubic area. Neurological: Level of Consciousness is awake, alert, obeys commands, Oriented to person, place, time. Respiratory: Airway is patent Respiratory effort is even, unlabored, Respiratory pattern is regular, symmetrical. GI: Abdomen is distended, in suprapubic region. : Last void was June 22, 2016. at 03:00. Derm: Skin is pink, warm & dry. 23:30 GI:. js15 23:45 Reassessment: Pt in US for imaging study. 15 06/23 00:30 Reassessment: Patient appears in no apparent distress at this time. Pt sleeping upon js15 entry to room with family at bedside; respirations even and unlabored; arouses easily and denies pain; skin normal, warm, dry. 01:30 General: Appears in no apparent distress, comfortable, to be sleeping. Respiratory: js15 Airway is patent Respiratory effort is even, unlabored, Respiratory pattern is regular, symmetrical. Derm: Skin is normal. Vital Signs: 06/22 22:24 BP 109 / 57; Pulse 79; Resp 16; Temp 97.2(O); Pulse Ox 100% on R/A; Weight 56.7 kg (R); lr2 Height 5 ft. 7 in. (170.18 cm) (R); Pain 8/10; 06/23 01:12 BP 102 / 51; Pulse 73; Resp 18; Temp 97.4(O); Pulse Ox 99% on R/A; Pain 0/10; kb5 06/22 22:24 Body Mass Index 19.58 (56.70 kg, 170.18 cm) lr2 Vitals: 06/22 22:24 Log In Time: June 22, 2016 at 22:23. lr2 ED Course: 22:24 Patient visited by Patsy Brown. lr2 22:24 Patient moved to Waiting lr2 22:26 Other - Complete Info On Cds is Private Physician. lr2 22:26 Oliver [facility] is Private Physician. lr2 22:26 Patient moved to Pre RCE lr2 22:29 Triage Initiated lf1 22:31 Patient moved to I7 lf1 22:35 attempted to insert 16 fr min catheter; able to insert approx. 1/3 of catheter tubing js15 and returned cloudy yellow urine, however pt began having extreme pain, crying out and tensing, and was unable to tolerate complete catheter insertion. Karen SHI was called to bedside to report findings and instructed this movie writer to draw urine from catheter tubing for sample and to remove catheter; catheter tip removed with small amount of blood at tip of tube. will continue to monitor. 22:43 Ivan Mercado PA is PHCP. mo1 22:43 Harry Negron DO is Attending Physician. mo1 22:55 Patient visited by Ivan Mercado PA. mo1 23:10 Inserted saline lock: 20 gauge in right antecubital area The patient tolerated the js15 procedure well. 23:41 Patient name changed from Amonee\S\\S\Ledbetter\S\ to Amonee\S\ \S\Ledbetter. EDMS 23:45 Patient moved to Ultrasound dmg 23:46 [facility] Payment Agreement was scanned into [employer] and attached to record. zo 06/23 00:01 Patient moved to I dmg 00:09 The patient / caregiver is instructed regarding the plan of care and ED course. js15 00:10 Patient visited by Griselda Collado RN. js15 00:39 US Renal Returned. EDMS 00:40 Assist provider with pelvic exam: Set up pelvic tray. Specimens sent to lab. Performed js15 by Ivan SHI Patient tolerated well. 00:43 Wet Prep Sent. js15 00:44 GC & Chlamydia Amplification Sent. js15 00:44 Urine Test-In Lab Sent. js15 00:59 Oliver [facility] is Referral Physician. mo1 01:12 Patient visited by Robert Sweet PCA. kb5 01:38 Discontinued IV lock intact, bleeding controlled, pressure dressing applied, No js15 redness/swelling at site. Administered Medications: 06/22 23:35 Drug: ketorolac 30 mg [ketorolac 30 mg/mL (1 mL) injection solution (1 mL)] Route: IVP; ld5 Site: right antecubital; 06/23 00:05 Follow up: Response: Pain is resolved 01:07 Drug: cefTRIAXone 1 grams [ceftriaxone 1 gram solution for injection] Route: IVPB; js15 Infused Over: 30 mins; Site: right antecubital; 01:39 Follow up: IV Status: Completed infusion 01:07 Drug: Ciprofloxacin 500 mg [ciprofloxacin 500 mg tablet (1 tabs)] Route: PO; js15 Order Results: Lab Order: CBC with Diff; SPEC'M 06/22/16 23:11 Test: WHITE BLOOD COUNT; Value: 6.3; Range: 4.0-10.0; Units: K/mm3; Status: F Test: RED BLOOD COUNT; Value: 4.21; Range: 4.00-5.40; Units: M/mm3; Status: F Test: HEMOGLOBIN; Value: 12.7; Range: 12.0-16.0; Units: g/dl; Status: F Test: HEMATOCRIT; Value: 38.1; Range: 36.0-47.0; Units: %; Status: F Test: MEAN CORPUSCULAR VOLUME; Value: 90.4; Range: 80.0-96.0; Units: fl; Status: F Test: MEAN CORPUSCULAR HEMOGLOBIN; Value: 30.2; Range: 27.0-33.0; Units: pg; Status: F Test: MEAN CORPUSCULAR HGB CONC; Value: 33.5; Range: 32.0-36.5; Units: g/dl; Status: F Test: RED CELL DISTRIBUTION WIDTH; Value: 12.9; Range: 11.5-14.5; Units: %; Status: F Test: PLATELET COUNT, AUTOMATED; Value: 181; Range: 150-450; Units: k/mm3; Status: F Test: NEUTROPHILS %; Value: 62.7; Range: 36.0-66.0; Units: %; Status: F Test: LYMPH %; Value: 28.3; Range: 24.0-44.0; Units: %; Status: F Test: MONO %; Value: 4.2; Range: 0.0-5.0; Units: %; Status: F Test: EOS %; Value: 2.0; Range: 0.0-3.0; Units: %; Status: F Test: BASO %; Value: 0.5; Range: 0.0-1.0; Units: %; Status: F Test: LARGE UNSTAINED CELL %; Value: 2.3; Range: 0.0-4.0; Units: %; Status: F Test: NEUTROPHILS #; Value: 4.0; Range: 1.8-7.7; Units: K/mm3; Status: F Test: LYMPH #; Value: 1.9; Range: 1.5-6.5; Units: K/mm3; Status: F Test: MONO #; Value: 0.3; Range: 0.0-0.8; Units: K/mm3; Status: F Test: EOS #; Value: 0.1; Range: 0.0-0.50; Units: K/mm3; Status: F Test: BASO #; Value: 0.0; Range: 0.0-0.2; Units: K/mm3; Status: F Test: LARGE UNSTAINED CELL #; Value: 0.2; Range: 0.0-0.4; Units: K/mm3; Status: F Lab Order: [facility]; SPEC'M 06/22/16 23:11 Test: GLUCOSE, FASTING; Value: 108; Range: 70-105; Abnormal: Above high normal; Units: MG/DL; Status: F Test: BLOOD UREA NITROGEN; Value: 10; Range: 7-18; Units: MG/DL; Status: F Test: CREATININE FOR GFR; Value: 0.84; Range: 0.55-1.02; Units: MG/DL; Status: F Test: SODIUM LEVEL; Value: 142; Range: 136-145; Units: MEQ/L; Status: F Test: POTASSIUM SERUM; Value: 4.0; Range: 3.5-5.1; Units: MEQ/L; Status: F Test: CHLORIDE LEVEL; Value: 107; Range: 98-107; Units: MEQ/L; Status: F Test: CARBON DIOXIDE LEVEL; Value: 26; Range: 21-32; Units: MEQ/L; Status: F Test: ANION GAP; Value: 9; Range: 8-16; Units: MEQ/L; Status: F Test: CALCIUM LEVEL; Value: 9.1; Range: 8.5-10.1; Units: MG/DL; Status: F Lab Order: Liver Profile; SPEC'M 06/22/16 23:11 Test: AST/SGOT; Value: 24; Range: 15-37; Units: U/L; Status: F Test: ALT/SGPT; Value: 27; Range: 12-78; Units: U/L; Status: F Test: ALKALINE PHOSPHATASE; Value: 81; Range: 45-117; Units: U/L; Status: F Test: BILIRUBIN,TOTAL; Value: 0.4; Range: 0.2-1.0; Units: MG/DL; Status: F Test: BILIRUBIN,DIRECT; Value: 0.1; Range: 0.0-0.2; Units: MG/DL; Status: F Test: TOTAL PROTEIN; Value: 7.5; Range: 6.4-8.2; Units: GM/DL; Status: F Test: ALBUMIN; Value: 3.8; Range: 3.2-5.2; Units: GM/DL; Status: F Test: ALBUMIN/GLOBULIN RATIO; Value: 1.03; Range: 1.00-1.93; Status: F Lab Order: Urinalysis; SPEC'M 06/22/16 23:11 Test: APPEARANCE, URINE; Value: CLOUDY; Range: CLEAR; Abnormal: Above high normal; Status: F Test: COLOR, URINE; Value: YELLOW; Range: YELLOW; Status: F Test: PH,URINE; Value: 5.0; Range: 5.0-9.0; Units: UNITS; Status: F Test: SPECIFIC GRAVITY URINE AUTO; Value: 1.034; Range: 1.002-1.035; Status: F Test: PROTEIN, URINE AUTO; Value: 2+; Range: NEGATIVE; Abnormal: Above high normal; Units: mg/dL; Status: F Test: GLUCOSE, URINE (UA) AUTO; Value: NEGATIVE; Range: NEGATIVE; Units: mg/dL; Status: F Test: KETONE, URINE AUTO; Value: TRACE; Range: NEGATIVE; Abnormal: Above high normal; Units: mg/dL; Status: F Test: UROBILINOGEN, URINE AUTO; Value: 0.2; Range: 0.0-2.0; Units: mg/dL; Status: F Test: BILIRUBIN, URINE AUTO; Value: NEGATIVE; Range: NEGATIVE; Status: F Test: NITRITE, URINE AUTO; Value: NEGATIVE; Range: NEGATIVE; Status: F Test: LEUKOCYTE ESTERASE, URINE AUTO; Value: 2+; Range: NEGATIVE; Abnormal: Above high normal; Status: F Test: BLOOD, URINE BLOOD; Value: 3+; Range: NEGATIVE; Abnormal: Above high normal; Status: F Test: WBC, URINE AUTO; Value: TNTC; Range: 0-3; Abnormal: Above high normal; Units: /HPF; Status: F Test: RBC, URINE AUTO; Value: TNTC; Range: 0-3; Abnormal: Above high normal; Units: /HPF; Status: F Test: BACTERIA, URINE AUTO; Value: 1+; Range: NEGATIVE; Abnormal: Above high normal; Status: F Test: SQUAMOUS EPITHELIAL CELL UR AU; Value: 3; Range: 0-6; Units: /HPF; Status: F Test: MUCUS, URINE; Value: LARGE; Range: NEGATIVE; Status: F Test: HYALINE CAST, URINE AUTO; Value: 0; Range: 0-1; Units: /LPF; Status: F Test: AMORPHOUS SEDIMENT; Value: SMALL; Range: NEGATIVE; Abnormal: Above high normal; Status: F Lab Order: Urine Culture; SPEC'M 06/22/16 23:11 Test: URINE CULTURE; Value: <EXTERNAL COMMENT eCWMed> FULL REPORT IN LAB NOTES (eCW and Medent).; Status: F Test: URINE CULTURE; Value: ORGANISM 1: ESCHERICHIA COLI; Status: F Test: URINE CULTURE; Value: ESCHERICHIA COLI; Status: F Test: URINE CULTURE; Value: COLONY COUNT CFU/ml >100,000; Status: F Test: URINE CULTURE; Value: GRAM NEG SENSI - VITEK 80; Status: F Test: URINE CULTURE; Value: Method: VIT2; Status: F Test: URINE CULTURE; Value: EXTD BRD SPCTRM BETA LACTAMASE -; Status: F Test: URINE CULTURE; Value: TRIMETHOPRIM/SULFAMETHOXAZOLE <=20 S; Status: F Test: URINE CULTURE; Value: AMPICILLIN <=2 S; Status: F Test: URINE CULTURE; Value: GENTAMICIN <=1 S; Status: F Test: URINE CULTURE; Value: NITROFURANTOIN <=16 S; Status: F Test: URINE CULTURE; Value: CEFAZOLIN <=4 S; Status: F Test: URINE CULTURE; Value: LEVOFLOXACIN <=0.12 S; Status: F Test: URINE CULTURE; Value: TOBRAMYCIN <=1 S; Status: F Test: URINE CULTURE; Value: CEFTRIAXONE <=1 S; Status: F Test: URINE CULTURE; Value: CEFTAZIDIME <=1 S; Status: F Test: URINE CULTURE; Value: AMPICILLIN/SULBACTAM <=2 S; Status: F Test: URINE CULTURE; Value: PIPERACILLIN/TAZOBACTAM <=4 S; Status: F Test: URINE CULTURE; Value: AZTREONAM <=1 S; Status: F Test: URINE CULTURE; Value: ERTAPENEM <=0.5 S; Status: F Test: URINE CULTURE; Value: MEROPENEM <=0.25 S; Status: F Test: URINE CULTURE; Value: TIGECYCLINE <=0.5 S; Status: F Test: URINE CULTURE; Value: CEFEPIME <=1 S; Status: F Lab Order: GC & Chlamydia Amplification; SPEC'M 06/23/16 00:42 Test: CHLAMYDIA DNA AMPLIFICATION; Value: NEGATIVE; Range: NEGATIVE; Status: F Test: GC DNA AMPLIFICATION; Value: NEGATIVE; Range: NEGATIVE; Status: F Lab Order: Wet Prep; SPEC'M 06/23/16 00:42 Test: WET PREP; Value: WET PREP RESULT; Status: F Test: WET PREP; Value: MANY RBC; Status: F Test: WET PREP; Value: MODERATE WBC; Status: F Test: WET PREP; Value: MODERATE EPITHELIAL CELLS PRESENT; Status: F Test: WET PREP; Value: MODERATE SHORT RODS PRESENT; Status: F Lab Order: Urine Test-In Lab; SPEC'M 06/22/16 23:11 Test: URINE PREG TEST; Value: NEGATIVE; Range: NEGATIVE; Status: F Radiology Order: US Renal Test: US Renal REASON FOR EXAMINATION: suprapubic pain; ; Clinical history: suprapubic pain.; Findings: The urinary bladder appears unremarkable, measuring 4.5 x 3.2 x 2.0 cm. No urinary bladder; masses are seen. The right kidney measures 10.0 x 4.6 x 4.1 cm. The left kidney measures 10.3 x 4.7 x; 6.1 cm. The kidneys demonstrate normal echotexture and echogenicity. There is no evidence of hydrone; phrosis or nephrolithiasis. No renal masses are seen. No free fluid is appreciated.; Impression: Unremarkable ultrasound examination of the kidneys.; ; Outcome: 00:09 Ultrasound Study completed. js15 00:59 Discharge ordered by Provider. mo1 01:38 Discharge Assessment: Patient awake, alert and oriented x 3. No cognitive and/or js15 functional deficits noted. Patient verbalized understanding of disposition instructions. patient administered narcotics - no. The following High Risk Discharge criteria are identified: None. Discharged to home ambulatory, with significant other. Condition: stable Condition: improved. Discharge instructions given to patient, Instructed on discharge instructions, follow up and referral plans. medication usage, Demonstrated understanding of instructions, medications, Pt was receptive of discharge instructions/ teaching. Prescriptions given X 2. Property sent home with patient. 01:40 Patient left the ED. js15 Addendum: 06/25/2016 10:24 Narrative: Urine culture results reviewed with Dr. Berry and no change in treatment kcs needed. Signatures: [facility]patcher [facility] Coty Blake RN RN Lydia Short Zoeann zo [place], Kristopher, DISTRIBUTION A CLASS LINEMAN DISTRIBUTION A CLASS LINEMAN kb5 Carina AriasRN RN lf1 Patsy Finnegan,RN RN colby5 Ivan Mercado PA PA mo1 Griselda Collado RN RN [email or web address] Patsy Brown lr2 Corrections: (The following items were deleted from the chart) 06/23 00:07 06/22 23:35 attempted to insert 16 fr min catheter; able to insert approx. 1/3 of js15 catheter tubing and returned cloudy yellow urine, however pt began having extreme pain, crying out and tensing, and was unable to tolerate complete catheter insertion. Karen SHI was called to bedside to report findings and instructed this movie writer to draw urine from catheter tubing for sample and to remove catheter; catheter tip removed with small amount of blood at tip of tube. will continue to monitor [facility] 06/23 00:06/22 23:30 General: Appears uncomfortable, Behavior is appropriate for age, js15 cooperative, [facility] 06/23 00:06/22 23:30 Pain: Location: suprapubic area 15 [facility] 06/23 00:06/22 23:30 Neurological: Level of Consciousness is awake, alert, obeys commands, js15 Oriented to person, place, time, [facility] 06/23 00:06/22 23:30 Respiratory: Airway is patent Respiratory effort is even, unlabored, js15 Respiratory pattern is regular, symmetrical, [facility] 06/23 00:06/22 23:30 : Last void was June 22, 2016. at 03:00. [place] [id number] 06/23 00:06/22 23:30 GI: Abdomen is distended, in suprapubic region [place] [id number] 06/23 00:06/22 23:30 Derm: Skin is pink, warm & dry. [place] [id number] 06/23 00:06/22 23:30 Reassessment: bladder scan performed to find <25 ml urine; however, pt is js15 tender to palpation in suprapubic area and bladder is distended; findings reported to Karen SHI and orders given. [facility] Chart Complete MTDD
--- NOTE | 2016-06-25 10:27 | EDDOCDS ---
Physician Documentation [facility] Name: Thomas Ledbetter Age: 20 yrs Sex: Female : 1995 Arrival Date: 06/22/2016 Time: 22:23 Bed I7 / 29 Private MD: LORETO Boyd Disposition: 06/23/16 00:59 Discharged to Home/Self Care. Impression: Urinary tract infection, site not specified. - Condition is Stable. - Discharge Instructions: Abdominal Pain, Adult, Urinary Tract Infection. - Prescriptions for Cipro 500 mg Oral Tablet - take 1 tablet by ORAL route every 12 hours; 14 tablet. Pyridium 200 mg Oral Tablet - take 1 tablet by ORAL route every 8 hours for 3 days; 9 tablet. - Work Release Form - 2 day, Medication Reconciliation, Local Pharmacy Hours form. - Follow up: LORETO Boyd; When: Call to arrange an appointment; Reason: Recheck today's complaints, Continuance of care. - Problem is new. - Symptoms are unchanged. Historical: - Allergies: No known drug Allergies; - Home Meds: 1. none - PMHx: none; - PSHx: none; - Social history: Smoking status: Patient states was never smoker of tobacco. No barriers to communication noted, The patient speaks fluent Argentine, Speaks appropriately for age, Preferred Language: Argentine. - Family history: Not pertinent. - : The pt / caregiver states he / she is not on anticoagulants. Home medication list is obtained from the patient. - Exposure Risk Screening:: None identified. 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 7 in. (170.18 cm) (R); Pain 8/10; 06/23 01:12 BP 102 / 51; Pulse 73; Resp 18; Temp 97.4(O); Pulse Ox 99% on R/A; Pain 0/10; kb5 06/22 22:24 Body Mass Index 19.58 (56.70 kg, 170.18 cm) lr2 MDM: 06/22 22:32 Bladder Scan please ordered. lf1 23:03 IV Saline Lock ordered. mo1 23:03 Undress patient appropriately for examination ordered. mo1 23:03 ketorolac 30 mg IVP once ordered. mo1 23:04 NOTHING BY MOUTH+DIET ordered. EDMS 23:04 CBC with Diff Ordered. EDMS 23:04 BMP Ordered. EDMS 23:04 Liver Profile Ordered. EDMS 23:04 Urinalysis Ordered. EDMS 23:05 Urine Culture Ordered. EDMS 23:05 US Renal Ordered. EDMS 23:45 Financial registration complete. zo 23:46 [facility] Payment Agreement was scanned into [employer] and attached to record. zo 23:52 Urinalysis Reviewed. mo1 23:53 BMP Reviewed. mo1 23:57 CBC with Diff Reviewed. mo1 23:57 Liver Profile Reviewed. mo1 06/23 00:38 cefTRIAXone 1 grams IVPB once over 30 mins; dilute in 50mL of NS or D5W ordered. mo1 00:38 Ciprofloxacin 500 mg PO once ordered. mo1 00:39 GC & Chlamydia Amplification Ordered. EDMS 00:39 Wet Prep Ordered. EDMS 00:41 US Renal Reviewed. mo1 00:44 Urine Test-In Lab Ordered. EDMS 00:56 Urine Test-In Lab Reviewed. mo1 00:57 Wet Prep Reviewed. mo1 Administered Medications: 06/22 23:35 Drug: ketorolac 30 mg [ketorolac 30 mg/mL (1 mL) injection solution (1 mL)] Route: IVP; ld5 Site: right antecubital; 06/23 00:05 Follow up: Response: Pain is resolved js15 01:07 Drug: cefTRIAXone 1 grams [ceftriaxone 1 gram solution for injection] Route: IVPB; js15 Infused Over: 30 mins; Site: right antecubital; 01:39 Follow up: IV Status: Completed infusion js15 01:07 Drug: Ciprofloxacin 500 mg [ciprofloxacin 500 mg tablet (1 tabs)] Route: PO; js15 Signatures: Dispatcher [employer] EDMS Carlos Royal Lisa,RN RN lf1 Ivan Mercado PA PA mo1 Griselda Collado RN RN js15 Patsy Finnegan RN ld5 The chart was reviewed and I authenticate all verbal orders and agree with the evaluation and treatment provided.Corrections: (The following items were deleted from the chart) 06/22 23:22 23:03 Lucy lazo mo1 js15 Attachments: 23:46 [facility] Payment Agreement zo Chart Complete MTDD
--- NOTE | 2016-06-25 10:30 | EDDOCDS ---
Nurse's Notes [facility] Name: Thomas Ledbetter Age: 20 yrs Sex: Female : 1995 Arrival Date: 06/22/2016 Time: 22:23 Bed I7 29 Private MD: LORETO Boyd Diagnosis: Urinary tract infection, site not specified Presentation: 06/22 22:27 Presenting complaint: Patient states: Pt states she has been unable to urinate since lf1 3am this morning. Currently having 8/10 suprapubic pain. Pt. states prior to onset of symptoms she was not having any other symptoms. Denies nausea and vomiting. Presents to triage area rocking back and forth, in obvious discomfort. Adult Sepsis Screening: The patient does not have new or worsening altered mentation. Patient's respiratory rate is less than 22. Systolic blood pressure is greater than 100. Patient has a qSOFA score of 0- Negative Sepsis Screen. Suicide/Homicide risk assessment- the patient denies having any suicidal and/or homicidal ideations and does not present with any other emotional, behavioral or mental health complaints. 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 Transition of care: patient was not received from another setting of care. 22:27 Acuity: JOE Level 3 lf1 22:27 Method Of Arrival: Walkin/Carried/Asstd lf1 Triage Assessment: 22:29 General: Appears slender, uncomfortable, Behavior is cooperative. Pain: Location: lf1 pelvis Pain currently is 8 out of 10 on a pain scale. Neurological: Level of Consciousness is awake, alert. Respiratory: Respiratory effort is even, unlabored. : Reports inability to void since 0300. 06/23 00:10 HIV screening NA for this visit Offered previously. 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 none - PMHx: none; - PSHx: none; - Social history: Smoking status: Patient states was never smoker of tobacco. No barriers to communication noted, The patient speaks fluent Comoran, Speaks appropriately for age, Preferred Language: Comoran. - Family history: Not pertinent. - : The pt / caregiver states he / she is not on anticoagulants. Home medication list is obtained from the patient. - Exposure Risk Screening:: None identified. Screenin/28 00:09 Screening information is obtained from the patient. Fall risk: No risks identified. js15 Assistance ADL's: requires no assistance with activities of daily living. Abuse/DV Screen: The patient / caregiver reports he/she is: not in a situation that causes fear, pain or injury. Nutritional screening: No deficits noted. Advance Directives: There is no active DNR order. home support is adequate. Assessment: 06/22 22:30 Reassessment: bladder scan performed to find <25 ml urine; however, pt is tender to js15 palpation in suprapubic area and bladder is distended; findings reported to Karen SHI and orders given. General: Appears uncomfortable, Behavior is appropriate for age, cooperative. Pain: Location: suprapubic area. Neurological: Level of Consciousness is awake, alert, obeys commands, Oriented to person, place, time. Respiratory: Airway is patent Respiratory effort is even, unlabored, Respiratory pattern is regular, symmetrical. GI: Abdomen is distended, in suprapubic region. : Last void was June 22, 2016. at 03:00. Derm: Skin is pink, warm & dry. 23:30 GI:. js15 23:45 Reassessment: Pt in US for imaging study. 15 06/23 00:30 Reassessment: Patient appears in no apparent distress at this time. Pt sleeping upon js15 entry to room with family at bedside; respirations even and unlabored; arouses easily and denies pain; skin normal, warm, dry. 01:30 General: Appears in no apparent distress, comfortable, to be sleeping. Respiratory: js15 Airway is patent Respiratory effort is even, unlabored, Respiratory pattern is regular, symmetrical. Derm: Skin is normal. Vital Signs: 06/22 22:24 BP 109 / 57; Pulse 79; Resp 16; Temp 97.2(O); Pulse Ox 100% on R/A; Weight 56.7 kg (R); lr2 Height 5 ft. 7 in. (170.18 cm) (R); Pain 8/10; 06/23 01:12 BP 102 / 51; Pulse 73; Resp 18; Temp 97.4(O); Pulse Ox 99% on R/A; Pain 0/10; kb5 06/22 22:24 Body Mass Index 19.58 (56.70 kg, 170.18 cm) lr2 Vitals: 06/22 22:24 Log In Time: June 22, 2016 at 22:23. lr2 ED Course: 22:24 Patient visited by Patsy Brown. lr2 22:24 Patient moved to Waiting lr2 22:26 Other - Complete Info On Cds is Private Physician. lr2 22:26 Oliver [facility] is Private Physician. lr2 22:26 Patient moved to Pre RCE lr2 22:29 Triage Initiated lf1 22:31 Patient moved to I7 lf1 22:35 attempted to insert 16 fr min catheter; able to insert approx. 1/3 of catheter tubing js15 and returned cloudy yellow urine, however pt began having extreme pain, crying out and tensing, and was unable to tolerate complete catheter insertion. Karen SHI was called to bedside to report findings and instructed this ad copy writer to draw urine from catheter tubing for sample and to remove catheter; catheter tip removed with small amount of blood at tip of tube. will continue to monitor. 22:43 Ivan Mercado PA is PHCP. mo1 22:43 Harry Negron DO is Attending Physician. mo1 22:55 Patient visited by Ivan Mercado PA. mo1 23:10 Inserted saline lock: 20 gauge in right antecubital area The patient tolerated the js15 procedure well. 23:41 Patient name changed from Amonee\S\\S\Ledbetter\S\ to Amonee\S\ \S\Ledbetter. EDMS 23:45 Patient moved to Ultrasound dmg 23:46 [facility] Payment Agreement was scanned into [employer] and attached to record. zo 06/23 00:01 Patient moved to I dmg 00:09 The patient / caregiver is instructed regarding the plan of care and ED course. js15 00:10 Patient visited by Griselda Collado RN. js15 00:39 US Renal Returned. EDMS 00:40 Assist provider with pelvic exam: Set up pelvic tray. Specimens sent to lab. Performed js15 by Ivan SHI Patient tolerated well. 00:43 Wet Prep Sent. js15 00:44 GC & Chlamydia Amplification Sent. js15 00:44 Urine Test-In Lab Sent. js15 00:59 Oliver [facility] is Referral Physician. mo1 01:12 Patient visited by Robert Sweet PCA. kb5 01:38 Discontinued IV lock intact, bleeding controlled, pressure dressing applied, No js15 redness/swelling at site. Administered Medications: 06/22 23:35 Drug: ketorolac 30 mg [ketorolac 30 mg/mL (1 mL) injection solution (1 mL)] Route: IVP; ld5 Site: right antecubital; 06/23 00:05 Follow up: Response: Pain is resolved 01:07 Drug: cefTRIAXone 1 grams [ceftriaxone 1 gram solution for injection] Route: IVPB; js15 Infused Over: 30 mins; Site: right antecubital; 01:39 Follow up: IV Status: Completed infusion 01:07 Drug: Ciprofloxacin 500 mg [ciprofloxacin 500 mg tablet (1 tabs)] Route: PO; js15 Order Results: Lab Order: CBC with Diff; SPEC'M 06/22/16 23:11 Test: WHITE BLOOD COUNT; Value: 6.3; Range: 4.0-10.0; Units: K/mm3; Status: F Test: RED BLOOD COUNT; Value: 4.21; Range: 4.00-5.40; Units: M/mm3; Status: F Test: HEMOGLOBIN; Value: 12.7; Range: 12.0-16.0; Units: g/dl; Status: F Test: HEMATOCRIT; Value: 38.1; Range: 36.0-47.0; Units: %; Status: F Test: MEAN CORPUSCULAR VOLUME; Value: 90.4; Range: 80.0-96.0; Units: fl; Status: F Test: MEAN CORPUSCULAR HEMOGLOBIN; Value: 30.2; Range: 27.0-33.0; Units: pg; Status: F Test: MEAN CORPUSCULAR HGB CONC; Value: 33.5; Range: 32.0-36.5; Units: g/dl; Status: F Test: RED CELL DISTRIBUTION WIDTH; Value: 12.9; Range: 11.5-14.5; Units: %; Status: F Test: PLATELET COUNT, AUTOMATED; Value: 181; Range: 150-450; Units: k/mm3; Status: F Test: NEUTROPHILS %; Value: 62.7; Range: 36.0-66.0; Units: %; Status: F Test: LYMPH %; Value: 28.3; Range: 24.0-44.0; Units: %; Status: F Test: MONO %; Value: 4.2; Range: 0.0-5.0; Units: %; Status: F Test: EOS %; Value: 2.0; Range: 0.0-3.0; Units: %; Status: F Test: BASO %; Value: 0.5; Range: 0.0-1.0; Units: %; Status: F Test: LARGE UNSTAINED CELL %; Value: 2.3; Range: 0.0-4.0; Units: %; Status: F Test: NEUTROPHILS #; Value: 4.0; Range: 1.8-7.7; Units: K/mm3; Status: F Test: LYMPH #; Value: 1.9; Range: 1.5-6.5; Units: K/mm3; Status: F Test: MONO #; Value: 0.3; Range: 0.0-0.8; Units: K/mm3; Status: F Test: EOS #; Value: 0.1; Range: 0.0-0.50; Units: K/mm3; Status: F Test: BASO #; Value: 0.0; Range: 0.0-0.2; Units: K/mm3; Status: F Test: LARGE UNSTAINED CELL #; Value: 0.2; Range: 0.0-0.4; Units: K/mm3; Status: F Lab Order: [facility]; SPEC'M 06/22/16 23:11 Test: GLUCOSE, FASTING; Value: 108; Range: 70-105; Abnormal: Above high normal; Units: MG/DL; Status: F Test: BLOOD UREA NITROGEN; Value: 10; Range: 7-18; Units: MG/DL; Status: F Test: CREATININE FOR GFR; Value: 0.84; Range: 0.55-1.02; Units: MG/DL; Status: F Test: SODIUM LEVEL; Value: 142; Range: 136-145; Units: MEQ/L; Status: F Test: POTASSIUM SERUM; Value: 4.0; Range: 3.5-5.1; Units: MEQ/L; Status: F Test: CHLORIDE LEVEL; Value: 107; Range: 98-107; Units: MEQ/L; Status: F Test: CARBON DIOXIDE LEVEL; Value: 26; Range: 21-32; Units: MEQ/L; Status: F Test: ANION GAP; Value: 9; Range: 8-16; Units: MEQ/L; Status: F Test: CALCIUM LEVEL; Value: 9.1; Range: 8.5-10.1; Units: MG/DL; Status: F Lab Order: Liver Profile; SPEC'M 06/22/16 23:11 Test: AST/SGOT; Value: 24; Range: 15-37; Units: U/L; Status: F Test: ALT/SGPT; Value: 27; Range: 12-78; Units: U/L; Status: F Test: ALKALINE PHOSPHATASE; Value: 81; Range: 45-117; Units: U/L; Status: F Test: BILIRUBIN,TOTAL; Value: 0.4; Range: 0.2-1.0; Units: MG/DL; Status: F Test: BILIRUBIN,DIRECT; Value: 0.1; Range: 0.0-0.2; Units: MG/DL; Status: F Test: TOTAL PROTEIN; Value: 7.5; Range: 6.4-8.2; Units: GM/DL; Status: F Test: ALBUMIN; Value: 3.8; Range: 3.2-5.2; Units: GM/DL; Status: F Test: ALBUMIN/GLOBULIN RATIO; Value: 1.03; Range: 1.00-1.93; Status: F Lab Order: Urinalysis; SPEC'M 06/22/16 23:11 Test: APPEARANCE, URINE; Value: CLOUDY; Range: CLEAR; Abnormal: Above high normal; Status: F Test: COLOR, URINE; Value: YELLOW; Range: YELLOW; Status: F Test: PH,URINE; Value: 5.0; Range: 5.0-9.0; Units: UNITS; Status: F Test: SPECIFIC GRAVITY URINE AUTO; Value: 1.034; Range: 1.002-1.035; Status: F Test: PROTEIN, URINE AUTO; Value: 2+; Range: NEGATIVE; Abnormal: Above high normal; Units: mg/dL; Status: F Test: GLUCOSE, URINE (UA) AUTO; Value: NEGATIVE; Range: NEGATIVE; Units: mg/dL; Status: F Test: KETONE, URINE AUTO; Value: TRACE; Range: NEGATIVE; Abnormal: Above high normal; Units: mg/dL; Status: F Test: UROBILINOGEN, URINE AUTO; Value: 0.2; Range: 0.0-2.0; Units: mg/dL; Status: F Test: BILIRUBIN, URINE AUTO; Value: NEGATIVE; Range: NEGATIVE; Status: F Test: NITRITE, URINE AUTO; Value: NEGATIVE; Range: NEGATIVE; Status: F Test: LEUKOCYTE ESTERASE, URINE AUTO; Value: 2+; Range: NEGATIVE; Abnormal: Above high normal; Status: F Test: BLOOD, URINE BLOOD; Value: 3+; Range: NEGATIVE; Abnormal: Above high normal; Status: F Test: WBC, URINE AUTO; Value: TNTC; Range: 0-3; Abnormal: Above high normal; Units: /HPF; Status: F Test: RBC, URINE AUTO; Value: TNTC; Range: 0-3; Abnormal: Above high normal; Units: /HPF; Status: F Test: BACTERIA, URINE AUTO; Value: 1+; Range: NEGATIVE; Abnormal: Above high normal; Status: F Test: SQUAMOUS EPITHELIAL CELL UR AU; Value: 3; Range: 0-6; Units: /HPF; Status: F Test: MUCUS, URINE; Value: LARGE; Range: NEGATIVE; Status: F Test: HYALINE CAST, URINE AUTO; Value: 0; Range: 0-1; Units: /LPF; Status: F Test: AMORPHOUS SEDIMENT; Value: SMALL; Range: NEGATIVE; Abnormal: Above high normal; Status: F Lab Order: Urine Culture; SPEC'M 06/22/16 23:11 Test: URINE CULTURE; Value: <EXTERNAL COMMENT eCWMed> FULL REPORT IN LAB NOTES (eCW and Medent).; Status: F Test: URINE CULTURE; Value: ORGANISM 1: ESCHERICHIA COLI; Status: F Test: URINE CULTURE; Value: ESCHERICHIA COLI; Status: F Test: URINE CULTURE; Value: COLONY COUNT CFU/ml >100,000; Status: F Test: URINE CULTURE; Value: GRAM NEG SENSI - VITEK 80; Status: F Test: URINE CULTURE; Value: Method: VIT2; Status: F Test: URINE CULTURE; Value: EXTD BRD SPCTRM BETA LACTAMASE -; Status: F Test: URINE CULTURE; Value: TRIMETHOPRIM/SULFAMETHOXAZOLE <=20 S; Status: F Test: URINE CULTURE; Value: AMPICILLIN <=2 S; Status: F Test: URINE CULTURE; Value: GENTAMICIN <=1 S; Status: F Test: URINE CULTURE; Value: NITROFURANTOIN <=16 S; Status: F Test: URINE CULTURE; Value: CEFAZOLIN <=4 S; Status: F Test: URINE CULTURE; Value: LEVOFLOXACIN <=0.12 S; Status: F Test: URINE CULTURE; Value: TOBRAMYCIN <=1 S; Status: F Test: URINE CULTURE; Value: CEFTRIAXONE <=1 S; Status: F Test: URINE CULTURE; Value: CEFTAZIDIME <=1 S; Status: F Test: URINE CULTURE; Value: AMPICILLIN/SULBACTAM <=2 S; Status: F Test: URINE CULTURE; Value: PIPERACILLIN/TAZOBACTAM <=4 S; Status: F Test: URINE CULTURE; Value: AZTREONAM <=1 S; Status: F Test: URINE CULTURE; Value: ERTAPENEM <=0.5 S; Status: F Test: URINE CULTURE; Value: MEROPENEM <=0.25 S; Status: F Test: URINE CULTURE; Value: TIGECYCLINE <=0.5 S; Status: F Test: URINE CULTURE; Value: CEFEPIME <=1 S; Status: F Lab Order: GC & Chlamydia Amplification; SPEC'M 06/23/16 00:42 Test: CHLAMYDIA DNA AMPLIFICATION; Value: NEGATIVE; Range: NEGATIVE; Status: F Test: GC DNA AMPLIFICATION; Value: NEGATIVE; Range: NEGATIVE; Status: F Lab Order: Wet Prep; SPEC'M 06/23/16 00:42 Test: WET PREP; Value: WET PREP RESULT; Status: F Test: WET PREP; Value: MANY RBC; Status: F Test: WET PREP; Value: MODERATE WBC; Status: F Test: WET PREP; Value: MODERATE EPITHELIAL CELLS PRESENT; Status: F Test: WET PREP; Value: MODERATE SHORT RODS PRESENT; Status: F Lab Order: Urine Test-In Lab; SPEC'M 06/22/16 23:11 Test: URINE PREG TEST; Value: NEGATIVE; Range: NEGATIVE; Status: F Radiology Order: US Renal Test: US Renal REASON FOR EXAMINATION: suprapubic pain; ; Clinical history: suprapubic pain.; Findings: The urinary bladder appears unremarkable, measuring 4.5 x 3.2 x 2.0 cm. No urinary bladder; masses are seen. The right kidney measures 10.0 x 4.6 x 4.1 cm. The left kidney measures 10.3 x 4.7 x; 6.1 cm. The kidneys demonstrate normal echotexture and echogenicity. There is no evidence of hydrone; phrosis or nephrolithiasis. No renal masses are seen. No free fluid is appreciated.; Impression: Unremarkable ultrasound examination of the kidneys.; ; Outcome: 00:09 Ultrasound Study completed. js15 00:59 Discharge ordered by Provider. mo1 01:38 Discharge Assessment: Patient awake, alert and oriented x 3. No cognitive and/or js15 functional deficits noted. Patient verbalized understanding of disposition instructions. patient administered narcotics - no. The following High Risk Discharge criteria are identified: None. Discharged to home ambulatory, with significant other. Condition: stable Condition: improved. Discharge instructions given to patient, Instructed on discharge instructions, follow up and referral plans. medication usage, Demonstrated understanding of instructions, medications, Pt was receptive of discharge instructions/ teaching. Prescriptions given X 2. Property sent home with patient. 01:40 Patient left the ED. js15 Addendum: 06/25/2016 10:24 Narrative: Urine culture results reviewed with Dr. Berry and no change in treatment kcs needed. Signatures: [facility]patcher [facility] Coty Blake RN RN Lydia Short Zoeann zo [place], Kristopher, INTERNAL MEDICINE NURSE INTERNAL MEDICINE NURSE kb5 Carina AriasRN RN lf1 Patsy Finnegan,RN RN colby5 Ivan Mercado PA PA mo1 Griselda Collado RN RN [id number] Patsy Brown lr2 Corrections: (The following items were deleted from the chart) 06/23 00:07 06/22 23:35 attempted to insert 16 fr min catheter; able to insert approx. 1/3 of js15 catheter tubing and returned cloudy yellow urine, however pt began having extreme pain, crying out and tensing, and was unable to tolerate complete catheter insertion. Karen SHI was called to bedside to report findings and instructed this ad copy writer to draw urine from catheter tubing for sample and to remove catheter; catheter tip removed with small amount of blood at tip of tube. will continue to monitor [facility] 06/23 00:06/22 23:30 General: Appears uncomfortable, Behavior is appropriate for age, js15 cooperative, [facility] 06/23 00:06/22 23:30 Pain: Location: suprapubic area 15 [facility] 06/23 00:06/22 23:30 Neurological: Level of Consciousness is awake, alert, obeys commands, js15 Oriented to person, place, time, [facility] 06/23 00:06/22 23:30 Respiratory: Airway is patent Respiratory effort is even, unlabored, js15 Respiratory pattern is regular, symmetrical, [facility] 06/23 00:06/22 23:30 : Last void was June 22, 2016. at 03:00. [place] [id number] 06/23 00:06/22 23:30 GI: Abdomen is distended, in suprapubic region [place] [id number] 06/23 00:06/22 23:30 Derm: Skin is pink, warm & dry. [place] [id number] 06/23 00:06/22 23:30 Reassessment: bladder scan performed to find <25 ml urine; however, pt is js15 tender to palpation in suprapubic area and bladder is distended; findings reported to Karen SHI and orders given. [facility] Chart Complete MTDD
--- NOTE | 2016-06-25 10:30 | EDDOCDS ---
Physician Documentation [facility] Name: Thomas Ledbetter Age: 20 yrs Sex: Female : 1995 Arrival Date: 06/22/2016 Time: 22:23 Bed I7 / 29 Private MD: LORETO Boyd Disposition: 06/23/16 00:59 Discharged to Home/Self Care. Impression: Urinary tract infection, site not specified. - Condition is Stable. - Discharge Instructions: Abdominal Pain, Adult, Urinary Tract Infection. - Prescriptions for Cipro 500 mg Oral Tablet - take 1 tablet by ORAL route every 12 hours; 14 tablet. Pyridium 200 mg Oral Tablet - take 1 tablet by ORAL route every 8 hours for 3 days; 9 tablet. - Work Release Form - 2 day, Medication Reconciliation, Local Pharmacy Hours form. - Follow up: LORETO Boyd; When: Call to arrange an appointment; Reason: Recheck today's complaints, Continuance of care. - Problem is new. - Symptoms are unchanged. Historical: - Allergies: No known drug Allergies; - Home Meds: 1. none - PMHx: none; - PSHx: none; - Social history: Smoking status: Patient states was never smoker of tobacco. No barriers to communication noted, The patient speaks fluent Ukrainian, Speaks appropriately for age, Preferred Language: Ukrainian. - Family history: Not pertinent. - : The pt / caregiver states he / she is not on anticoagulants. Home medication list is obtained from the patient. - Exposure Risk Screening:: None identified. 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 7 in. (170.18 cm) (R); Pain 8/10; 06/23 01:12 BP 102 / 51; Pulse 73; Resp 18; Temp 97.4(O); Pulse Ox 99% on R/A; Pain 0/10; kb5 06/22 22:24 Body Mass Index 19.58 (56.70 kg, 170.18 cm) lr2 MDM: 06/22 22:32 Bladder Scan please ordered. lf1 23:03 IV Saline Lock ordered. mo1 23:03 Undress patient appropriately for examination ordered. mo1 23:03 ketorolac 30 mg IVP once ordered. mo1 23:04 NOTHING BY MOUTH+DIET ordered. EDMS 23:04 CBC with Diff Ordered. EDMS 23:04 BMP Ordered. EDMS 23:04 Liver Profile Ordered. EDMS 23:04 Urinalysis Ordered. EDMS 23:05 Urine Culture Ordered. EDMS 23:05 US Renal Ordered. EDMS 23:45 Financial registration complete. zo 23:46 [facility] Payment Agreement was scanned into [employer] and attached to record. zo 23:52 Urinalysis Reviewed. mo1 23:53 BMP Reviewed. mo1 23:57 CBC with Diff Reviewed. mo1 23:57 Liver Profile Reviewed. mo1 06/23 00:38 cefTRIAXone 1 grams IVPB once over 30 mins; dilute in 50mL of NS or D5W ordered. mo1 00:38 Ciprofloxacin 500 mg PO once ordered. mo1 00:39 GC & Chlamydia Amplification Ordered. EDMS 00:39 Wet Prep Ordered. EDMS 00:41 US Renal Reviewed. mo1 00:44 Urine Test-In Lab Ordered. EDMS 00:56 Urine Test-In Lab Reviewed. mo1 00:57 Wet Prep Reviewed. mo1 Administered Medications: 06/22 23:35 Drug: ketorolac 30 mg [ketorolac 30 mg/mL (1 mL) injection solution (1 mL)] Route: IVP; ld5 Site: right antecubital; 06/23 00:05 Follow up: Response: Pain is resolved js15 01:07 Drug: cefTRIAXone 1 grams [ceftriaxone 1 gram solution for injection] Route: IVPB; js15 Infused Over: 30 mins; Site: right antecubital; 01:39 Follow up: IV Status: Completed infusion js15 01:07 Drug: Ciprofloxacin 500 mg [ciprofloxacin 500 mg tablet (1 tabs)] Route: PO; js15 Signatures: Dispatcher [employer] EDMS Carlos Royal Lisa,RN RN lf1 Ivan Mercado PA PA mo1 Griselda Collado RN RN js15 Patsy Finnegan RN ld5 The chart was reviewed and I authenticate all verbal orders and agree with the evaluation and treatment provided.Corrections: (The following items were deleted from the chart) 06/22 23:22 23:03 Lucy lazo mo1 js15 Attachments: 23:46 [facility] Payment Agreement zo Chart Complete MTDD
--- NOTE | 2016-06-25 10:30 | EDDOCDS ---
Physician Documentation [facility] Name: Thomas Ledbetter Age: 20 yrs Sex: Female : 1995 Arrival Date: 06/22/2016 Time: 22:23 Bed I7 / 29 Private MD: LORETO Boyd Disposition: 06/23/16 00:59 Discharged to Home/Self Care. Impression: Urinary tract infection, site not specified. - Condition is Stable. - Discharge Instructions: Abdominal Pain, Adult, Urinary Tract Infection. - Prescriptions for Cipro 500 mg Oral Tablet - take 1 tablet by ORAL route every 12 hours; 14 tablet. Pyridium 200 mg Oral Tablet - take 1 tablet by ORAL route every 8 hours for 3 days; 9 tablet. - Work Release Form - 2 day, Medication Reconciliation, Local Pharmacy Hours form. - Follow up: LORETO Boyd; When: Call to arrange an appointment; Reason: Recheck today's complaints, Continuance of care. - Problem is new. - Symptoms are unchanged. Historical: - Allergies: No known drug Allergies; - Home Meds: 1. none - PMHx: none; - PSHx: none; - Social history: Smoking status: Patient states was never smoker of tobacco. No barriers to communication noted, The patient speaks fluent Icelandic, Speaks appropriately for age, Preferred Language: Icelandic. - Family history: Not pertinent. - : The pt / caregiver states he / she is not on anticoagulants. Home medication list is obtained from the patient. - Exposure Risk Screening:: None identified. 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 7 in. (170.18 cm) (R); Pain 8/10; 06/23 01:12 BP 102 / 51; Pulse 73; Resp 18; Temp 97.4(O); Pulse Ox 99% on R/A; Pain 0/10; kb5 06/22 22:24 Body Mass Index 19.58 (56.70 kg, 170.18 cm) lr2 MDM: 06/22 22:32 Bladder Scan please ordered. lf1 23:03 IV Saline Lock ordered. mo1 23:03 Undress patient appropriately for examination ordered. mo1 23:03 ketorolac 30 mg IVP once ordered. mo1 23:04 NOTHING BY MOUTH+DIET ordered. EDMS 23:04 CBC with Diff Ordered. EDMS 23:04 BMP Ordered. EDMS 23:04 Liver Profile Ordered. EDMS 23:04 Urinalysis Ordered. EDMS 23:05 Urine Culture Ordered. EDMS 23:05 US Renal Ordered. EDMS 23:45 Financial registration complete. zo 23:46 [facility] Payment Agreement was scanned into [employer] and attached to record. zo 23:52 Urinalysis Reviewed. mo1 23:53 BMP Reviewed. mo1 23:57 CBC with Diff Reviewed. mo1 23:57 Liver Profile Reviewed. mo1 06/23 00:38 cefTRIAXone 1 grams IVPB once over 30 mins; dilute in 50mL of NS or D5W ordered. mo1 00:38 Ciprofloxacin 500 mg PO once ordered. mo1 00:39 GC & Chlamydia Amplification Ordered. EDMS 00:39 Wet Prep Ordered. EDMS 00:41 US Renal Reviewed. mo1 00:44 Urine Test-In Lab Ordered. EDMS 00:56 Urine Test-In Lab Reviewed. mo1 00:57 Wet Prep Reviewed. mo1 Administered Medications: 06/22 23:35 Drug: ketorolac 30 mg [ketorolac 30 mg/mL (1 mL) injection solution (1 mL)] Route: IVP; ld5 Site: right antecubital; 06/23 00:05 Follow up: Response: Pain is resolved js15 01:07 Drug: cefTRIAXone 1 grams [ceftriaxone 1 gram solution for injection] Route: IVPB; js15 Infused Over: 30 mins; Site: right antecubital; 01:39 Follow up: IV Status: Completed infusion js15 01:07 Drug: Ciprofloxacin 500 mg [ciprofloxacin 500 mg tablet (1 tabs)] Route: PO; js15 Signatures: Dispatcher [employer] EDMS Carlos Royal Lisa,RN RN lf1 Ivan Mercado PA PA mo1 Griselda Collado RN RN js15 Patsy Finnegan RN ld5 The chart was reviewed and I authenticate all verbal orders and agree with the evaluation and treatment provided.Corrections: (The following items were deleted from the chart) 06/22 23:22 23:03 Lucy lazo mo1 js15 Attachments: 23:46 [facility] Payment Agreement zo Chart Complete MTDD
== END 2016-06-23 01:40 | disposition home or self-care (01) ==
LOC: M ED 22:23
DX: N39.0 Urinary tract infection, site not specified (principal); E86.0 Dehydration
CPT/HCPCS: 76775; 80048; 80076; 81001; 84703; 85025; 87088; 87186; 87210; 87491; 87591; 96365; 96375; 99285; J0696; J1885